=== PATIENT | female | born 2000 | race Caucasian/White ===

== ENCOUNTER 2024-08-13 13:12 | Outpatient (AMB) | payer MEDICAID, SELFPAY ==
--- NOTE | 2024-08-13 13:38 | ACNOTE_ITS ---
Vital Signs 08/13/24 13:39 Height 1.62 m Height Method Stated Weight 107.501 kg Weight Measurement Method Standing Scale BMI 40.9 BP 127/75 Blood Pressure Source Automatic Cuff Blood Pressure Location Left Upper Arm Position Sitting Respiration 17 Pulse 92 Pulse Source Monitor Temp 98.0 F Temp Source Temporal Artery Scan Pulse Oximetry (%) 98 Oxygen Delivery Method Room Air Allergies/Meds Allergies & Medications Allergies No Known Allergies Allergy (Verified 08/13/24 13:40) Medication Reconciliation hydrocodone 5 mg-acetaminophen 325 mg tablet ([place]) 1 tab PO BID PRN pain #12 tabs 01/08/20 [Rx Confirmed 08/13/24] acetaminophen 325 mg capsule (Tylenol) 650 mg (2 x 325 mg) PO QID PRN fever or pain #30 caps 10/02/20 [Rx Confirmed 08/13/24] fluoxetine 10 mg capsule (Prozac) 10 mg PO QDAY #30 caps 08/13/24 [Rx] MA Intake Visit Data Collection New Patient or Established: Established Patient (seen at 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 PCP or OBGYN visit in last 3 months: No Hx Now: No Do You Feel Safe at Home: Yes Authorities Contacted: N/A Smoking Status Smoking Status: Never smoker Immunization / Flu Flu Vaccine in the Last 12 Months: No Flu Vaccine Exclusion Criteria: No Exclusion Criteria Past Medical History Past Medical History NEUROLOGIC: Negative Neurological Disorders or Seizures CARDIAC: Negative Cardiac Disorders or Congestive Heart Failure RESPIRATORY: Negative Chronic Obstructive Pulmonary Disease (COPD) or Asthma GASTROINTESTINAL: Positive Gastrointestinal Disorders and Obesity GENITOURINARY: Negative Genitourinary Disorders or Renal Disease ENDOCRINE: Negative Endocrine Disorders, Diabetes Mellitus Type 1 or Diabetes Mellitus Type 2 HEMATOLOGIC: Negative Blood Disorders or Sickle Cell Disease OTHER HISTORY: Positive Hospitalization and Falls; Negative Autoimmune Disease, Blood Transfusions, Blood Transfusion Reaction or Anesthesia Reactions Family History FAMILY HISTORY: Positive Family Cardiac Disorders and Family Surgery Surgical History SURGICAL: Positive Abdominal Surgery Social History SMOKING STATUS: Smoking status: Never smoker ALCOHOL: Alcohol Intake: Never HOUSING: Housing: House Patient Portal Questionaires Social History Living Situation History Housing: House Tobacco History Smoking Status: Never smoker Alcohol History Alcohol Intake: Never Domestic Abuse History Do You Feel Safe at Home: Yes Review of Systems Report any current symptoms Only answer those that you have currently: Past Medical History Past Medical History Have you ever been diagnosed with any of the following: Neurological Problems Seizures: No Cardiology Problems Congestive Heart Failure: No Respiratory Problems Chronic Obstructive Pulmonary Disease (COPD): No Asthma: No Stomache/Intestinal Problems Obesity: Yes Genital/Urinary Problems Renal Disease: No Endocrine Problems Diabetes Mellitus Type 1: No Diabetes Mellitus Type 2: No Blood Problems Sickle Cell Disease: No Other Problems Hospitalization: Yes Autoimmune Disease: No Falls: Yes Blood Transfusions: No Blood Transfusion Reaction: No Anesthesia Reactions: No History of Present Illness HPI Narrative 24 yo F with anxiety and depression, and obesity. Patient presented today due to 2 episodes LOC after panic attacks. Also wants weight management. Denies palpitations, but feels warm sensations when feeling presyncopal. Review of Systems Review of Systems Systems Reviewed: All systems reviewed, normal except as documented Objective/Exam Narrative Physical exam: Constitutional: AOx3, able to speak full sentences HEENT: NC/AT, PERRLA, oral mucosa moist, neck supple CVS: RRR, S1-S2 present, no murmurs RESP: CTAB GI: non distended, non tender to palpation, NBS MSK: full ROM, no peripheral edema, peripheral pulses present Skin: warm and dry, no rashes Neuro: tire classifier II-XII grossly intact. Sensation grossly intact. Assessment & Plan Diagnosis / Problem List (1) Syncope: Status: Acute Qualifiers: Syncope type: unspecified Qualified Code(s): R55 - Syncope and collapse Assessment & Plan: Had two episodes that the patient had a syncopal episode, feels a warm sensation, denies palpitations happens after a panic attack or anxiety Plan: -labs: cbc, cmp, thyroid, urinalysis, mag/phos -Cardiology referral (2) Depression: Status: Acute Qualifiers: Depression Type: major depressive disorder Major depression recurrence: unspecified whether recurrent Active/Remission status: currently active Major depression episode severity: unspecified Qualified Code(s): F32.9 - Major depressive disorder, single episode, unspecified Assessment & Plan: Has sufferred from anxiety and depression from several years. might also have a component of PTSD Plan: -we will screen for severity next visit -we will screen for PTSD on the next visit Orders: Referrals Cardiovascular R55 - Syncope and collapse Office Procedures [facility] Level of Care Nursing/Assessment Patient Status: Established Patient Nursing Assessment/Reassessment: Medication Reconciliation, Update PMH in EMR and Vital Signs Coordination of Care: Complex Care and Chronic Disease 1-5, Consent,records obtained, informed consent, Education Simp Pt/Fam and Staff clarify orders Established Patient Charge Established Patient Point Assignment: 85 Established Patient Point Charge: EP Level 3 (80-115)
[2024-08-13 13:39] VITALS: BP 127/75; PULSE 92; RESP 17; TEMP 36.7; O2SAT 98; BMI 40.9
== END 2024-08-13 16:22 | disposition home or self-care (01) ==
LOC: HODAHC 13:12
PROVIDERS: PCP Student in an Organized Health Care Education/Training Program; Referring Provider Student in an Organized Health Care Education/Training Program; Supervising Provider Internal Medicine; Visit Provider Student in an Organized Health Care Education/Training Program
DX: R55 Syncope and collapse (principal); F41.0 Panic disorder [episodic paroxysmal anxiety]; F32.9 Major depressive disorder, single episode, unspecified; E66.9 Obesity, unspecified
CPT/HCPCS: 99213; G0463

== ENCOUNTER 2024-08-26 15:01 | Outpatient (AMB) | payer MEDICAID, SELFPAY ==
--- NOTE | 2024-08-26 15:17 | PD.RESCLINIC ---
Vital Signs 08/26/24 15:36 Height 1.62 m Height Method Stated Weight 109.486 kg Weight Measurement Method Standing Scale BMI 41.7 BP 141/85 H Blood Pressure Source Automatic Cuff Blood Pressure Location Left Upper Arm Position Sitting Respiration 16 Pulse 99 Pulse Source Monitor Temp 98.6 F Temp Source Temporal Artery Scan Pulse Oximetry (%) 99 Oxygen Delivery Method Room Air Allergies/Meds Allergies & Medications Allergies No Known Allergies Allergy (Verified 08/27/24 09:14) Medication Reconciliation hydrocodone 5 mg-acetaminophen 325 mg tablet ([place]) 1 tab PO BID PRN pain #12 tabs 01/08/20 [Rx Confirmed 08/27/24] acetaminophen 325 mg capsule (Tylenol) 650 mg (2 x 325 mg) PO QID PRN fever or pain #30 caps 10/02/20 [Rx Confirmed 08/27/24] fluoxetine 10 mg capsule (Prozac) 10 mg PO QDAY #30 caps 08/13/24 [Rx Confirmed 08/27/24] azithromycin 250 mg tablet (Zithromax Z-Obi) See Rx Instructions PO .COMPLEX #6 tabs 08/26/24 [Rx Confirmed 08/27/24] MA Intake Visit Data Collection New Patient or Established: Established Patient (seen at [facility] within 3 years) Seen by Clinical Staff ONLY (RN/MA): No Pain Present Currently: No Pain Scale Used: Mckay-Galeas/Numerical 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 PCP or OBGYN visit in last 3 months: Yes Hx Now: No Do You Feel Safe at Home: Yes Authorities Contacted: N/A Smoking Status Smoking Status: Never smoker Immunization / Flu Flu Vaccine in the Last 12 Months: No Flu Vaccine Exclusion Criteria: No Exclusion Criteria Past Medical History Past Medical History NEUROLOGIC: Negative Neurological Disorders or Seizures CARDIAC: Negative Cardiac Disorders or Congestive Heart Failure RESPIRATORY: Negative Chronic Obstructive Pulmonary Disease (COPD) or Asthma GASTROINTESTINAL: Positive Gastrointestinal Disorders and Obesity GENITOURINARY: Negative Genitourinary Disorders or Renal Disease ENDOCRINE: Negative Endocrine Disorders, Diabetes Mellitus Type 1 or Diabetes Mellitus Type 2 HEMATOLOGIC: Negative Blood Disorders or Sickle Cell Disease OTHER HISTORY: Positive Hospitalization and Falls; Negative Autoimmune Disease, Blood Transfusions, Blood Transfusion Reaction or Anesthesia Reactions Family History FAMILY HISTORY: Positive Family Cardiac Disorders and Family Surgery Surgical History SURGICAL: Positive Abdominal Surgery Social History SMOKING STATUS: Smoking status: Never smoker ALCOHOL: Alcohol Intake: Never HOUSING: Housing: House Patient Portal Questionaires Social History Living Situation History Housing: House Tobacco History Smoking Status: Never smoker Alcohol History Alcohol Intake: Never Domestic Abuse History Do You Feel Safe at Home: Yes Review of Systems Report any current symptoms Only answer those that you have currently: Past Medical History Past Medical History Have you ever been diagnosed with any of the following: Neurological Problems Seizures: No Cardiology Problems Congestive Heart Failure: No Respiratory Problems Chronic Obstructive Pulmonary Disease (COPD): No Asthma: No Stomache/Intestinal Problems Obesity: Yes Genital/Urinary Problems Renal Disease: No Endocrine Problems Diabetes Mellitus Type 1: No Diabetes Mellitus Type 2: No Blood Problems Sickle Cell Disease: No Other Problems Hospitalization: Yes Autoimmune Disease: No Falls: Yes Blood Transfusions: No Blood Transfusion Reaction: No Anesthesia Reactions: No History of Present Illness HPI Narrative Patient is a walk-in for clinic today. Patient endorses waking up with left ear pain and throat pain this morning. Patient states she had a shower last night, went to sleep and woke up with pain. Pain is not responding to advil. She states this feels similar to ear infections that she would get when she was younger. Denies any hearing loss, discharge, fevers, discharge, or sick contacts. She denies using any Qtips or other form of trauma to ear. Review of Systems Review of Systems Systems Reviewed: All systems reviewed, normal except as documented Objective/Exam Narrative Physical exam: Gen: AAOx3, pleasant to speak with, answers Qs appropriately HEENT: NCAT, TTP at left mastoid; B/L TM visualized, mild effusion at left TM; erythematous pharynx without any exudates, no LAD CVS: normal S1, S2. RRR. No MRG Resp: CTA B/L. No rhonchi, rales, crackles or wheezing Abd: soft, non-tender, non-distended. BS+ in all 4 quadrants MSK: Good ROM in BUE & BLE. No edema or rash. Assessment & Plan Diagnosis / Problem List (1) Ear pain, left: Status: Acute Assessment & Plan: Patient c/o pain in left ear, with TTP at mastoid; ear exam with some erythema, mild effusion at L TM Plan: Will order z obi (500mg day 1, 250mg day 2-5) Use OTC advil for pain Consider obtaining head/neck CT to evaluate/rule out mastoiditis if patients symptoms don't improve Office Procedures [facility] Level of Care Nursing/Assessment Patient Status: Established Patient Nursing Assessment/Reassessment: Medication Reconciliation and Update PMH in EMR Coordination of Care: Complex Care and Chronic Disease 1-5, Consent,records obtained, informed consent, Education Simp Pt/Fam and Staff clarify orders Established Patient Charge Established Patient Point Assignment: 70 Established Patient Point Charge: EP Level 2 (40-75)
[2024-08-26 15:36] VITALS: BP 141/85; PULSE 99; RESP 16; TEMP 37; O2SAT 99; BMI 41.7
== END 2024-08-26 15:32 | disposition home or self-care (01) ==
LOC: HODAHC 15:01
PROVIDERS: Supervising Provider Internal Medicine; Visit Provider Student in an Organized Health Care Education/Training Program
DX: H92.02 Otalgia, left ear (principal)
CPT/HCPCS: 99212; G0463

== ENCOUNTER 2024-09-03 08:54 | Emergency (ER) | payer MEDICAID, SELFPAY ==
--- NOTE | 2024-09-03 08:58 | EKG_ITS ---
[facility] Test Date: 2024-09-03 Pat Name: NILESH DIAZ Department: Room: - Gender: Female Cath Lab Tech: : [id number] Requested By: Clifford Dumas (MAICOL) Order Number: [id number] Reading MD: Clifford Dumas (NANOTECHNOLOGIST) Measurements Intervals [place] Rate: 89 P: 60 WA: 125 QRS: 46 QRSD: 85 T: 17 QT: 342 QTc: 418 Interpretive Statements SINUS RHYTHM Compared to ECG 08/18/2022 01:23:30 Atrial fibrillation no longer present Ventricular premature complex(es) no longer present Aberrant conduction of supraventricular beat(s) no longer present /store/S0/[id number]/ecg/[id number].pdf
[2024-09-03 09:07] VITALS: BP 141/94; PULSE 91; RESP 20; TEMP 36.8; O2SAT 99; BMI 41.7
--- NOTE | 2024-09-03 09:16 | XR_ITS ---
Examination: PA lateral chest 2 views TECHNIQUE: Upright PA lateral chest 2 views Exam date and time: September 03, 2024 0927 hours INDICATIONS: Chest pain shortness of breath beginning one month ago. FINDINGS: Normal heart size. Lungs are clear. Osseous structures are intact. IMPRESSION: No active disease
--- NOTE | 2024-09-03 09:17 | PD.EDRME ---
Rapid Medical Screening Exam RME Arrival date/time: 09/03/24 08:54 24-year-old female presents to the emergency department today complains of episode of tachycardia and labile blood pressure today Chief Complaint: Chest Pain Vital signs: Vital Signs Temperature 98.2 F 09/03/24 09:07 Pulse Rate 91 09/03/24 09:07 Respiratory Rate 20 09/03/24 09:07 Blood Pressure 141/94 H 09/03/24 09:07 Pulse Oximetry (%) 99 09/03/24 09:07 Oxygen Delivery Method Room Air 09/03/24 09:07
[2024-09-03 09:46] LABS: Basophils % (Auto) 1 % (0-2.5); Eosinophils # (Auto) 0.1 Thou/mm3 (0.0-0.5); Eosinophils % (Auto) 1 % (0-10); Hematocrit 40.7 % (36.0-46.0); Hemoglobin 14.2 g/dL (12.0-16.0); Immature Granulocytes % (Auto) 0 % (0-0); Immature Granulocytes Auto 0.02 Thou/mm3 (0.00-0.00); Lymphocytes # (Auto) 1.5 Thou/mm3 (1.0-4.8); Lymphocytes % (Auto) 18 % (10-50); Mean Corpuscular HGB Conc 34.9 g/dl (31.0-37.0); Mean Corpuscular Hemoglobin 29.8 pg (25.0-35.0); Mean Corpuscular Volume 86 fL (80-100); Monocytes # (Auto) 0.4 Thou/mm3 (0.0-0.8); Monocytes % (Auto) 5 % (0-12); Neutrophils # (Auto) 6.2 Thou/mm3 (1.8-7.7); Neutrophils % (Auto) 76 % (37-80); Nucleated Red Blood Cell % 0 /100 WBC (0); Platelet Count 326 Thou/mm3 (140-440); RDW Standard Deviation 38.8 fL (36.4-46.3); Red Blood Count 4.76 Miln/mm3 (4.00-5.20); White Blood Count 8.3 Thou/mm3 (3.6-11.0)
[2024-09-03 10:29] LABS: HCG,Qualitative Serum Negative
[2024-09-03 10:48] LABS: Alanine Aminotransferase 37 U/L (10-49); Albumin, Serum 4.6 gm/dL (3.5-5.0); Albumin/Globulin Ratio 1.8 (1.2-2.2); Alkaline Phosphatase 79 U/L (46-116); Anion Gap 8 (7-16); Aspartate Amino Transferase 23 U/L (0-34); BUN/Creatinine Ratio 11 Ratio (12-20); Bilirubin,Total 0.6 mg/dL (0.3-1.2); Blood Urea Nitrogen 8 mg/dL (9-23); Calcium 9.4 mg/dL (8.3-10.6); Calcium (Corrected) 9.4 mg/dL (8.5-10.1); Carbon Dioxide 25.5 mMol/L (20.0-31.0); Chloride 106 mMol/L (98-107); Creatinine (Component) 0.7 mg/dL (0.6-1.3); Estimated Creatinine Clearance 151.8 mL/min (>60); Free T4 (Free Thyroxine) 1.15 ng/dL (0.89-1.76); Globulin 2.6 gm/dL (2.3-3.5); Glucose 94 mg/dL (74-106); Osmolality,Calculated 275 (275-295); Potassium 3.5 mMol/L (3.4-5.1); Sodium 139 mMol/L (136-145); Thyroid Stimulating Hormone 0.75 uIU/mL (0.55-4.78); Total Protein 7.2 gm/dL (5.7-8.2); Troponin I < 0.002 ng/mL (0.0-0.045); eGFR > 60 See Note
--- NOTE | 2024-09-03 12:17 | EDNOTE_ITS ---
<Statement entered by Namrata Navarrete MD - 09/04/24 16:29> As co-signing physician, I was present and available for consult prn. I concur with the plan and care as documented by the midlevel provider. ED General RME/HPI General Chief complaint: Chest Pain Stated complaint: HEART RACING, NEAR SYNCOPE, JOHNSON, CHEST PAIN Time Seen by Provider: 09/03/24 12:04 Arrival date/time: 09/03/24 08:54 RME / HPI RME / HPI narrative: 24-year-old female patient with no past medical history, came in for evaluation regarding syncope. Patient been having symptoms of sudden onset of dizziness, near syncope, heart racing, palpitation, chest discomfort, headache, for several months. It is worse during activity. Currently patient is not having any symptoms. Was seen by PCP regarding this complaints and awaiting to be seen by a outreach rep in 2 months. Patient denies any other complaints. Related Data Previous Rx's ?Medication ?Instructions ?Recorded hydrocodone 5 mg-acetaminophen 325 1 tab PO BID PRN pa in #12 tabs 01/07/ mg tablet ([place]) acetaminophen 325 mg capsule 650 mg (2 x 325 mg) PO QI D PRN 10/02/20 (Tylenol) fever or pain #30 caps fluoxetine 10 mg capsule (Prozac) 10 mg PO QDAY #30 ca ps 08/13/24 azithromycin 250 mg tablet See Rx Instructions PO .COM PLEX #6 08/26/24 (Zithromax Z-Obi) tabs Allergies Allergy/AdvReac Type Severity Reaction Status Date / Time No Known Allergies Allergy Verified 08/27/24 09:14 Review of Systems Review of Systems Narrative Review of Systems: Review of system reviewed and within normal limits except mentioned in HPI ED Exam Narrative Physical exam: VITAL SIGNS: Reviewed. GENERAL APPEARANCE: Alert and interactive, follows commands, no acute distress, HEAD AND FACE: Non-traumatic. ENT: PERRL, pink conjunctivitis, eyelid no trauma, Mucous membrane moist. NECK: Supple, nontender, no nuchal rigidity. CHEST: No tenderness, no crepitus, no paradoxical movement, no retractions. LUNGS: Clear, well ventilated, symmetric, no rales, no wheezing, no ronchi, no stridor, good breath sounds bilaterally. HEART: Regular rate, regular rhythm, no murmur, no gallops. ABDOMEN: Soft, positive bowel sounds, nondistended, no guarding, nontender, no rebound, no masses, RECTAL: Deferred. GENITAL: Deferred. NEUROLOGICAL: Gross motor function intact sensory function intact, Appropriate for age. MUSCULOSKELETAL: low back nontender, full range of motion. EXTREMITIES: Nontender, full range of motion. SKIN: Color pink, dry, no rash, no lacerations, no abrasions, no contusions. LYMPHATICS: Deferred. Course Quality Measures none Orders Category Date Time Status EKG (ED ONLY) *Do not use* NOW Care 09/03/24 08:58 Completed EKG (ED Only) Stat Exams 09/03/24 08:58 Draft XR chest 2V Stat Exams 09/03/24 09:16 Completed CBC Stat Lab 09/03/24 09:35 Completed Comprehensive Metabolic Panel Stat Lab 09/03/24 09:35 Completed Free T4 (Free Thyroxine) Stat Lab 09/03/24 09:35 Completed HCG,Qualitative Serum Stat Lab 09/03/24 09:35 Completed TSH [Thyroid Stimulating Hormone] Stat Lab 09/03/24 09:35 Completed Troponin I Stat Lab 09/03/24 09:35 Completed Vital Signs Vital signs: Vital Signs Temperature 98.2 F 09/03/24 09:07 Pulse Rate 91 09/03/24 09:07 Respiratory Rate 20 09/03/24 09:07 Blood Pressure 141/94 H 09/03/24 09:07 Pulse Oximetry (%) 99 09/03/24 09:07 Oxygen Delivery Method Room Air 09/03/24 09:07 [facility] [place] Patient data External records reviewed:: None Clinical information provided by:: none Social determinants that could affect healthcare access:: none Patient has the following chronic illnesses:: None How is presenting disease/condition affected by chronic disease/condition?: no chronic disease Evaluation data The following diagnostics were reviewed and interpreted by me:: lab results, radiology exam(s) and EKG tracing(s) Lab and/or radiology exams considered but not ordered:: None Interpretation Summary: See results in MDM Medications Medications considered but not ordered:: None Medication administrations:: None Consultations Consultation(s) initiated? (list below): No Diagnosis Differential Diagnosis ED Complaint MDM: Dizziness, palpitation, anxiety, near- syncope Most likely diagnosis given after review of the tests above:: Near-syncope Admission Indicated Admission indicated?: not indicated Explain why admission is indicated or not indicated:: Stable Admission Request Was there a request for admission?: No Disposition Plan Disposition Plan: Discharge Discharge Attestation Discharge Attestation: The patient and all family members were given an opportunity to ask questions and understood the discharge instructions. Discharge instructions specifically effects, indications for sooner follow up or return to the emergency department, and the expected course of current diagnosis. Patient condition: Stable Medical Decision Making MDM Narrative MDM Narrative: 24-year-old female patient with no past medical history, came in for evaluation regarding syncope. Patient been having symptoms of sudden onset of dizziness, near syncope, heart racing, palpitation, chest discomfort, headache, for several months. It is worse during activity. Currently patient is not having any symptoms. Was seen by PCP regarding this complaints and awaiting to be seen by a outreach rep in 2 months. Patient denies any other complaints. Patient's cardiac workup all came back normal today including thyroid panel. Chest x-ray came back unremarkable. EKG showed normal sinus rhythm, ventricular rate of 89 bpm, no ST segment elevation or depression noted. Patient was strongly advised to call PCP and asked if she can see her outreach rep earlier than scheduled. Patient appears nontoxic and hemodynamically stable. Patient discharged home and instructed to follow-up with primary care provider in 24 to 48 hours. Instructed to return to the emergency department immediately if worsening of symptoms Differential Diagnosis Differential Diagnosis: Dizziness, palpitation, anxiety, near-syncope Lab Data 09/03/24 09:35 09/03/24 09:35 Labs: Lab Results 09/03/24 Range/Units 09:35 WBC 8.3 (3.6-11.0) Thou/mm3 RBC 4.76 (4.00-5.20) Miln/mm3 Hgb 14.2 (12.0-16.0) g/dL Hct 40.7 (36.0-46.0) % MCV 86 (80-100) fL MCH 29.8 (25.0-35.0) pg MCHC 34.9 (31.0-37.0) g/dl RDW Std Deviation 38.8 (36.4-46.3) fL Plt Count 326 (140-440) Thou/mm3 Neut % (Auto) 76 (37-80) % Lymph % (Auto) 18 (10-50) % [place] % (Auto) 5 (0-12) % Eos % (Auto) 1 (0-10) % Baso % (Auto) 1 (0-2.5) % Neut # (Auto) 6.2 (1.8-7.7) Thou/mm3 Lymph # (Auto) 1.5 (1.0-4.8) Thou/mm3 [place] # (Auto) 0.4 (0.0-0.8) Thou/mm3 Eos # (Auto) 0.1 (0.0-0.5) Thou/mm3 Baso # (Auto) 0.0 (0.0-0.2) Thou/mm3 Immature Gran # (Auto) 0.02 H (0.00-0.00) Thou/mm3 Absolute Nucleated RBC 0.00 (0.00-0.00) Thou/mm3 Immature Gran % 0 (0-0) % Nucleated RBC % 0 (0) /100 WBC Sodium 139 (136-145) mMol/L Potassium 3.5 (3.4-5.1) mMol/L Chloride 106 (98-107) mMol/L Carbon Dioxide 25.5 (20.0-31.0) mMol/L Anion Gap 8 (7-16) BUN 8 L (9-23) mg/dL Creatinine 0.7 (0.6-1.3) mg/dL Estim Creat Clear Calc 151.8 (>60) mL/min eGFR > 60 (60 - ) See Note BUN/Creatinine Ratio 11 L (12-20) Ratio Glucose 94 (74-106) mg/dL Calculated Osmolality 275 (275-295) Calcium 9.4 (8.3-10.6) mg/dL Corrected Calcium 9.4 (8.5-10.1) mg/dL Total Bilirubin 0.6 (0.3-1.2) mg/dL AST 23 (0-34) U/L ALT 37 (10-49) U/L Alkaline Phosphatase 79 (46-116) U/L Troponin I < 0.002 (0.0-0.045) ng/mL Total Protein 7.2 (5.7-8.2) gm/dL Albumin 4.6 (3.5-5.0) gm/dL Globulin 2.6 (2.3-3.5) gm/dL Albumin/Globulin Ratio 1.8 (1.2-2.2) TSH 0.75 (0.55-4.78) uIU/mL Free T4 1.15 (0.89-1.76) ng/dL HCG, Qual Negative Discharge Plan Plan Patient Disposition: HOME (Self Care) Disposition Comment: Stable Prescriptions/Referrals Prescriptions/Med Rec: No Action fluoxetine [Prozac] 10 mg capsule 10 mg PO QDAY Qty: 30 2RF azithromycin [Zithromax Z-Obi] 250 mg tablet See Rx Instructions PO .COMPLEX Qty: 6 0RF Rx Instructions: For 250 mg dose pack: take 500 mg today (day 1), then 250 mg for 4 days (days 2-5) orally; hydrocodone-acetaminophen [[place]] 5-325 mg tablet 1 tab PO BID MDD 4 PRN (Reason: pain) Qty: 12 0RF acetaminophen [Tylenol] 325 mg capsule 650 mg PO QID PRN (Reason: fever or pain) Qty: 30 0RF Referrals: Lance Parker MD [Primary Care Provider] - In 1 week Problem List Clinical Impression: Postural dizziness with near syncope Patient/Caregiver Discharge Instructions Education Materials: ED Near-Fainting- Vagal Reaction Additional Instructions: Thank you for the opportunity for serving you today. You are stable for discharged . You are advised to: Follow-up with your PCP in 1 to 2 days and and asked if you can be seen by a outreach rep sooner Return to ED for worsening of symptoms Increase oral fluids Print Language: Slovak Stand Alone Forms: Kori Award Info., Patient Portal Info Letter MENDOZA/BRIGHT Supervising Physician LOIS Supervising Physician: MD Landon
== END 2024-09-03 12:31 | disposition home or self-care (01) ==
PROVIDERS: Nurse Practitioner Primary Care; Emergency Provider Emergency Medicine; PCP Student in an Organized Health Care Education/Training Program
DX: R42 Dizziness and giddiness (principal); R55 Syncope and collapse; R07.89 Other chest pain
CPT/HCPCS: 36415; 71046; 80053; 84439; 84443; 84484; 84703; 85025; 93005; 99283

== ENCOUNTER 2024-10-06 12:09 | Outpatient (AMB) | payer MEDICAID, SELFPAY ==
[2024-10-06 13:05] VITALS: BP 114/82; PULSE 94; RESP 16; TEMP 37; O2SAT 94; BMI 40.3
--- NOTE | 2024-10-06 13:05 | GYNCLNT_ITS ---
Vital Signs 10/06/24 13:05 Height 1.63 m Height Method Stated Weight 106.594 kg Weight Measurement Method Standing Scale BMI 40.3 BP 114/82 Blood Pressure Source Automatic Cuff Blood Pressure Location Left Upper Arm Position Sitting Respiration 16 Pulse 94 Pulse Source Monitor Temp 98.6 F Temp Source Temporal Artery Scan Pulse Oximetry (%) 94 L Oxygen Delivery Method Room Air Allergies/Home Meds Allergies & Medications Allergies No Known Allergies Allergy (Verified 10/06/24 13:12) Medication Reconciliation azithromycin 250 mg tablet (Zithromax Z-Obi) See Rx Instructions PO .COMPLEX #6 tabs 08/26/24 [Rx Confirmed 10/06/24] fluoxetine 10 mg capsule (Prozac) 10 mg PO QDAY #30 caps 09/10/24 [Rx Confirmed 10/06/24] propranolol 10 mg tablet 10 mg PO TID #90 tabs 09/10/24 [Rx Confirmed 10/06/24] medroxyprogesterone 10 mg tablet 10 mg PO .taper 21 days #27 tabs 10/06/24 [Rx Confirmed 10/06/24] Intake Visit Data Collection New Patient or Established: Established Patient (seen at [facility] within 3 years) Reason for Visit:: heavy menstrual Seen by Clinical Staff ONLY (RN/MA): No Director General Required: No Do You Feel Safe at Home: Yes Authorities Contacted: N/A PCP or OBGYN visit in last 3 months: Yes Are you currently on any form of Control: Yes Pain Scale Used: Mckay-Galeas/Numerical Pain scale:: 6 Smoking Status Smoking Status: Never smoker 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 1. Little interest or pleasure in doing things: not at all 2. Feeling down, depressed, or hopeless: not at all Total score: 0 PHQ-9 3. Trouble falling or staying asleep, or sleeping too much: Not at all 4. Feeling tired or having little energy: Not at all 5. Poor appetite or overeating: Not at all 6. Feeling bad about yourself - or that you are a failure or have let yourself or your family down: Not at all 7. Trouble concentrating on things, such as reading the newspaper or watching television: Not at all 8. Moving or speaking so slowly that other people could have noticed? - Or the opposite - being so fidgety or restless that you have been moving around a lot more than usual: not at all 9. Thoughts that you would be better off or of hurting yourself in some way: Not at all Total score: 0 If you checked off any problems, how difficult have these problems made it for you to do your work, take care of things at home, or get along with other pe ople?: not difficult at all Source: Developed by Drs. Rome Rodríguez, Jammie Jay, Richie Rae and colleagues, with an educational nae from [employer]. Social History Living Situation History Housing: House Tobacco History Smoking Status: Never smoker Alcohol History Alcohol Intake: Never Domestic Abuse History Do You Feel Safe at Home: Yes Past Medical History Past Medical History Have you ever been diagnosed with any of the following: Neurological Problems Seizures: No Cardiology Problems Congestive Heart Failure: No Respiratory Problems Chronic Obstructive Pulmonary Disease (COPD): No Asthma: No Stomache/Intestinal Problems Obesity: Yes Genital/Urinary Problems Renal Disease: No Endocrine Problems Diabetes Mellitus Type 1: No Diabetes Mellitus Type 2: No Blood Problems Sickle Cell Disease: No Other Problems Hospitalization: Yes Falls: Yes Blood Transfusions: No Blood Transfusion Reaction: No Anesthesia Reactions: No History of Present Illness HPI Narrative The patient, Jina Mckeon, reports heavy menstrual bleeding that started on after stopping her control. She notes that the bleeding is more severe than usual and is accompanied by significant pain. The patient describes the pain as radiating from her abdomen to her back, along with associated cramping. She mentions that while she typically experiences heavy bleeding even when on control, this episode is particularly painful, which is unusual for her. The patient also reports an irregular menstrual cycle last month, stating that she had her period on the but only experienced spotting. She had previously undergone a regular ultrasound at the ER for evaluation of her symptoms. Review of Systems Review of Systems Systems Reviewed: All systems reviewed, normal except as documented Exam General Limitations: no limitations General Appearance: alert, in no apparent distress, comfortable, cooperative, healthy appearing, well developed and well groomed Head Head exam: atraumatic, normocephalic and normal inspection Neck Neck exam: Present normal inspection, full ROM and trachea midline Chest Chest inspection: Present normal inspection and symmetric chest wall rise Abdominal Abdominal exam: Present soft and normal bowel sounds Extremities Extremities exam: Present normal inspection and full ROM Back Back exam: Present normal inspection and full ROM Psych Psychiatric exam: Present normal affect and normal mood Skin Skin exam: Present warm, dry, intact and normal color Assessment & Plan Diagnosis / Problem List (1) Abnormal uterine and vaginal bleeding, unspecified: Status: Acute (2) Abdominal pain: Status: Acute Plan Patient reports heavy menstrual bleeding and severe pain since discontinuing control. The heavy bleeding has been consistent while on control, but the current episode is accompanied by back pain and cramping. This presentation is likely due to withdrawal from hormonal contraception, resulting in a more intense menstrual period. The previous month's spotting on the is assessed as an anovulatory cycle. The clinician attributes the current symptoms to the cessation of control, explaining the hormonal feedback loop and breakthrough bleeding phenomenon. - Prescribe Provera (progesterone) with a tapering regimen: * 3 times daily for 2 days * 2 times daily for 2 days * Once daily for remaining days to complete a 21-day course - Patient to report back by Friday on bleeding status - Consider additional medication if bleeding does not slow or stop - Plan for transvaginal ultrasound after bleeding stops, ideally in the early phase of the next cycle - Follow up to review ultrasound results and determine further management Medical Decision Making Jina Mckeon is a female patient presenting with heavy menstrual bleeding and associated pain after stopping control. The patient's symptoms of heavy bleeding, back pain, and cramps are consistent with post- control withdrawal bleeding. Given the recent cessation of control and the patient's history of heavy periods while on contraceptives, the current symptoms are likely due to hormonal fluctuations. The decision to prescribe Provera (progesterone) is based on its ability to control uterine bleeding by stabilizing the endometrial lining. The tapering regimen of Provera (3 times daily for 2 days, then 2 times daily for 2 days, followed by once daily) over a 21-day period is designed to gradually regulate the menstrual cycle. An ultrasound was considered but deferred due to active bleeding, with plans to perform it after the bleeding stops to assess for any underlying structural abnormalities. Preventive Medicine: Patient Counseling: Sexual Health, Contraception, and Family Planning Your sexual and reproductive health is important, and there are several steps you can take to protect yourself and make informed decisions. Safe Sex and STD Prevention: ? Condom Use: Consistent use of condoms during vaginal, anal, and oral sex reduces the risk of sexually transmitted diseases (STDs), including HIV. ? Regular Testing: Routine STD testing is important, especially if you or your partner have multiple partners. Early detection helps prevent complications. ? Open Communication: Discuss your sexual health and testing history with your partner(s) to make safer choices together. Contraceptive Options: ? Barrier Methods: Condoms (male and female) provide protection against both and STDs. ? Hormonal Methods: control pills, patches, vaginal rings, injections, and implants prevent when used consistently and correctly. ? Long-Acting Reversible Contraception (LARC): IUDs (hormonal and non- hormonal) and implants provide long-term, highly effective protection. ? Permanent Contraception: Options like tubal ligation or vasectomy are available for those who do not wish to have more children. Emergency Contraception (EC): ? Emergency contraception (e.g., Plan B or Ling) can be used after unprotected sex or contraceptive failure and is most effective when taken within 72 hours (up to 5 days for some options). ? EC does not protect against STDs, so follow up with testing if exposure is a concern. Family Planning and Pre- Health: ? If you are planning to become , begin taking folic acid 1 mg daily to reduce the risk of neural tube defects. ? Avoid teratogenic drugs (medications that can harm a developing baby) and discuss any prescription medications with your healthcare provider before . ? It is recommended to space pregnancies at least 18 months apart to support your health and reduce -related risks. Additional Plan Follow Up: 2 Weeks Office Procedures OB Clinic LOC & Office Proc's Nursing/Assessment Patient Status: Established Patient OB Clinic Nursing Assessment: Medication Reconciliation, Update PMH in EMR and Vital Signs OB Clinic Coordination of Care: Complex Care and Chronic Disease 1-5, Consent,records obtained, informed consent, Education Simp Pt/Fam, 1 Ins Authorization, Lab and Imaging orders and Staff clarify orders Established Patient Charge Established Patient Point Assignment: 115 Established Patient Point Charge: Level 3 (80115)
== END 2024-10-06 12:10 | disposition home or self-care (01) ==
LOC: HODSOBC 12:09
PROVIDERS: PCP Obstetrics & Gynecology; Referring Provider Obstetrics & Gynecology; Supervising Provider Obstetrics & Gynecology; Visit Provider Obstetrics & Gynecology
DX: N93.9 Abnormal uterine and vaginal bleeding, unspecified (principal); R10.9 Unspecified abdominal pain
CPT/HCPCS: 99213; G0463

== ENCOUNTER → 2024-10-14 | Outpatient (CLI) | payer MEDICAID, SELFPAY ==
--- NOTE | 2024-10-14 10:07 | XR_ITS ---
Examination: Transvaginal ultrasound of the pelvis, complete Technique: Transvaginal sonographic images pelvis performed using pan scale imaging Exam date and time: October 14, 2024 1018 hours INDICATIONS: Irregular heavy menses beginning one year ago FINDINGS: Uterus 6.1 cm endometrial stripe 0.2 cm No uterine mass or intrauterine gestation Right ovary 2.4 cm arterial flow small follicles Left ovary 4.1 cm arterial flow 25 x 25 mm simple cyst IMPRESSION: 25 x 22 x 25 mm simple left ovarian cyst.
== END | disposition home or self-care (01) ==
PROVIDERS: PCP Physician Assistant Medical; Referring Provider Obstetrics & Gynecology; Visit Provider Obstetrics & Gynecology
DX: N83.292 Other ovarian cyst, left side (principal)
CPT/HCPCS: 76830

== ENCOUNTER 2024-10-21 10:04 | Outpatient (AMB) | payer MEDICAID, SELFPAY ==
--- NOTE | 2024-10-21 10:56 | ACNOTE_ITS ---
Vital Signs 10/21/24 10:57 Height 1.63 m Height Method Stated Weight 106.764 kg Weight Measurement Method Standing Scale BMI 40.4 BP 131/87 H Blood Pressure Source Automatic Cuff Blood Pressure Location Right Upper Arm Position Sitting Respiration 16 Pulse 87 Pulse Source Monitor Temp 98.5 F Temp Source Temporal Artery Scan Pulse Oximetry (%) 98 Oxygen Delivery Method Room Air Allergies/Meds Allergies & Medications Allergies No Known Allergies Allergy (Verified 10/21/24 10:58) Medication Reconciliation azithromycin 250 mg tablet (Zithromax Z-Obi) See Rx Instructions PO .COMPLEX #6 tabs 08/26/24 [Rx Confirmed 10/06/24] fluoxetine 10 mg capsule (Prozac) 10 mg PO QDAY #30 caps 09/10/24 [Rx Confirmed 10/06/24] propranolol 10 mg tablet 10 mg PO TID #90 tabs 09/10/24 [Rx Confirmed 10/06/24] medroxyprogesterone 10 mg tablet 10 mg PO .taper 21 days #27 tabs 10/06/24 [Rx Confirmed 10/06/24] amoxicillin 500 mg tablet 500 mg PO Q12H #20 tabs 10/21/24 [Rx Confirmed 10/21/24] Confirmation of home meds: Pt. unable to confirm MA Intake Visit Data Collection New Patient or Established: Established Patient (seen at [facility] within 3 years) Seen by Clinical Staff ONLY (RN/MELISSA): No Pain Present Currently: No Pain scale:: 0 Pain Scale Used: Mckay-Galeas/Numerical Industrial Cleaner Required: No PCP or OBGYN visit in last 3 months: No Hx Now: No Do You Feel Safe at Home: Yes Authorities Contacted: N/A Smoking Status Smoking Status: Never smoker Immunization / Flu Flu Vaccine in the Last 12 Months: No Flu Vaccine Exclusion Criteria: No Exclusion Criteria Past Medical History Past Medical History NEUROLOGIC: Negative Neurological Disorders or Seizures CARDIAC: Negative Cardiac Disorders or Congestive Heart Failure RESPIRATORY: Negative Chronic Obstructive Pulmonary Disease (COPD) or Asthma GASTROINTESTINAL: Positive Gastrointestinal Disorders and Obesity GENITOURINARY: Negative Genitourinary Disorders or Renal Disease ENDOCRINE: Negative Endocrine Disorders, Diabetes Mellitus Type 1 or Diabetes Mellitus Type 2 HEMATOLOGIC: Negative Blood Disorders or Sickle Cell Disease OTHER HISTORY: Positive Hospitalization and Falls; Negative Autoimmune Disease, Blood Transfusions, Blood Transfusion Reaction or Anesthesia Reactions Family History FAMILY HISTORY: Positive Family Cardiac Disorders and Family Surgery Surgical History SURGICAL: Positive Abdominal Surgery Social History SMOKING STATUS: Smoking status: Never smoker ALCOHOL: Alcohol Intake: Never HOUSING: Housing: House Patient Portal Questionaires PHQ-9 PHQ-2 Over the last 2 weeks, how often have you been bothered by any of the following problems? 1. Little interest or pleasure in doing things: not at all PHQ-9 8. Moving or speaking so slowly that other people could have noticed? - Or the opposite - being so fidgety or restless that you have been moving around a lot more than usual: not at all Source: Developed by Drs. Rome Rodríguez, Jammie Jay, Richie Rae and colleagues, with an educational nae from [employer]. Social History Living Situation History Housing: House Tobacco History Smoking Status: Never smoker Alcohol History Alcohol Intake: Never Domestic Abuse History Do You Feel Safe at Home: Yes Review of Systems Report any current symptoms Only answer those that you have currently: Past Medical History Past Medical History Have you ever been diagnosed with any of the following: Neurological Problems Seizures: No Cardiology Problems Congestive Heart Failure: No Respiratory Problems Chronic Obstructive Pulmonary Disease (COPD): No Asthma: No Stomache/Intestinal Problems Obesity: Yes Genital/Urinary Problems Renal Disease: No Endocrine Problems Diabetes Mellitus Type 1: No Diabetes Mellitus Type 2: No Blood Problems Sickle Cell Disease: No Other Problems Hospitalization: Yes Autoimmune Disease: No Falls: Yes Blood Transfusions: No Blood Transfusion Reaction: No Anesthesia Reactions: No History of Present Illness HPI Narrative 10/21/2024: Jina is a 24 y/o female who comes in for an evaluation of a cough, sore throat, and headache, onset Friday. Pt reports that she has been feeling like these for about 5 days now and it has not gotten better. She does say one of her coworkers is sick right now. She also says that she traveled down to [place] on Friday for a concert. She has gotten the flu vaccine this year. She denies having any fever, chills, CP, SOB. She has tried Ibuprofen and tylenol with some relief. She usually does not get sick often. She has no other complaints at this time. Review of Systems Review of Systems Narrative Review of Systems: Constitutional: No fever, chills, fatigue, weakness, weight loss, +JOHNSON HEENT: No eye pain, vision loss, ear pain, hearing loss, +sore throat Cardiovascular: No chest pain, palpitations, edema, pain with walking Respiratory: + cough, shortness of breath, wheezing GI: No NVD, abdominal pain, constipation, blood in stool, loss of appetite, heartburn Extremities: No presence of pitting edema MSK: No back pain, joint pain, joint swelling Neuro: No dizziness, numbness, weakness, headaches, seizures, tremors Psych: No anxiety, depression Objective/Exam Narrative Physical exam: General: AAOx3, NAD, HEENT: Dry mucous membranes, conjunctiva clear, EOMI, PERRLA, TM wnl bilat, no koplik spots visualized, uvula midline, pharnyx clear of erythema or swelling, no tonsillar swelling, + cervical lymphadenopathy Cardiovascular: S1, S2, radial pulses +2 bilat, RRR Pulmonary: CTAB bilat no cough, no wheezing GI: No tenderness to light or deep palpitation, no guarding, rigidity, rebound tenderness or distension Extremities: No presence of trace or pitting edema in lower extremities bilaterally, dorsalis pedis pulses +2 bilaterally Neuro: AAOx3, no focal motor or sensory deficits in the UE or LE bilat Psych: Good judgement, thought and behavior. Cooperative Assessment & Plan Diagnosis / Problem List (1) Acute streptococcal pharyngitis: Status: Acute Assessment & Plan: CENTOR Criteria: 1 point Pt has been sick for past 5 days, and has sick contacts Low suspicion for pharyngitis, however empiric treatment at this time is warranted due to duration of sx and sick contacts Will hold on sending rapid strep swab at this time and continue with empiric tx Plan: Amoxicillin 500 mg BID for ten days Antiemetic as needed Encourage oral intake Supportive care Additional Assessment Internal Medicine Attending Note: Case discussed with and agree with note and management plan of Resident Jensen sandoval as per Resident's Note above. Issues of concern for present visit are as follows: Acute visit, URI symptoms including cough, sore throat, headache. Known sick contact at work that is currently on antibiotics. Also traveled out of town for a concert so was in crowded situation. Exam consistent with pharyngitis, viral versus bacterial, Centor criteria only 1 point. Given exposure we will treat empirically with amoxicillin, and encourage supportive care. Caleb Ornelas MD Physician Billing Established Patient Established Patient: E/M Level 3-CPT 90066 Office Procedures [facility] Level of Care Nursing/Assessment Patient Status: Established Patient Nursing Assessment/Reassessment: Medication Reconciliation, Update PMH in EMR and Vital Signs Coordination of Care: Complex Care and Chronic Disease 1-5, Consent,records obtained, informed consent, Education Simp Pt/Fam and Staff clarify orders Established Patient Charge Established Patient Point Assignment: 85 Established Patient Point Charge: Level 3 (80-115)
[2024-10-21 10:57] VITALS: BP 131/87; PULSE 87; RESP 16; TEMP 36.9; O2SAT 98; BMI 40.4
== END 2024-10-21 10:40 | disposition home or self-care (01) ==
LOC: HODAHC 10:04
PROVIDERS: Supervising Provider Internal Medicine
DX: J02.0 Streptococcal pharyngitis (principal)
CPT/HCPCS: 99213; G0463

== ENCOUNTER 2025-03-03 13:41 | Outpatient (AMB) | payer MEDICAID, SELFPAY ==
[2025-03-03 13:56] VITALS: BP 118/75; PULSE 97; RESP 17; TEMP 36.8; O2SAT 98; BMI 38.0
--- NOTE | 2025-03-03 13:56 | AMB.GYNCLNOT ---
Vital Signs 03/03/25 13:56 Height 1.63 m Height Method Stated Weight 101.151 kg Weight Measurement Method Standing Scale BMI 38.0 BP 118/75 Blood Pressure Source Automatic Cuff Blood Pressure Location Right Upper Arm Position Sitting Respiration 17 Pulse 97 Pulse Source Monitor Temp 98.2 F Temp Source Temporal Artery Scan Pulse Oximetry (%) 98 Oxygen Delivery Method Room Air Allergies/Home Meds Allergies & Medications Allergies penicillin G Allergy (Verified 03/03/25 14:06) Vomiting Intake Visit Data Collection New Patient or Established: Established Patient (seen at [facility] within 3 years) Reason for Visit:: CONFIRM Seen by Clinical Staff ONLY (RN/MA): No Florist Required: No Do You Feel Safe at Home: Yes Authorities Contacted: N/A PCP or OBGYN visit in last 3 months: No Hx Now: Yes Are you currently on any form of Control: No Last menstrual period: 12/28/24 Pain Present Currently: No Pain Scale Used: Mckay-Galeas/Numerical Pain scale:: 0 Smoking Status Smoking Status: Never smoker 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 Sociology Research Assistant History Menstrual regularity: regular Flow: normal Monthly: Yes How many days does period last: 5 Age at menarche: 17 Currently sexually active: Yes 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 1. Little interest or pleasure in doing things: not at all 2. Feeling down, depressed, or hopeless: not at all Total score: 0 PHQ-9 3. Trouble falling or staying asleep, or sleeping too much: Not at all 4. Feeling tired or having little energy: Not at all 5. Poor appetite or overeating: Not at all 6. Feeling bad about yourself - or that you are a failure or have let yourself or your family down: Not at all 7. Trouble concentrating on things, such as reading the newspaper or watching television: Not at all 8. Moving or speaking so slowly that other people could have noticed? - Or the opposite - being so fidgety or restless that you have been moving around a lot more than usual: not at all 9. Thoughts that you would be better off or of hurting yourself in some way: Not at all Total score: 0 If you checked off any problems, how difficult have these problems made it for you to do your work, take care of things at home, or get along with other people?: not difficult at all Source: Developed by Drs. Rome Rodríguez, Jammie Jay, Richie Rae and colleagues, with an educational nae from [employer]. Depression screen completed yes Social History Living Situation History Marital Status: Life Partner Lives With: Family Housing: House Tobacco History Smoking Status: Never smoker Second Hand Smoke Exposure: No Alcohol History Alcohol Intake: Never Domestic Abuse History Do You Feel Safe at Home: Yes History of Present Illness HPI Narrative Jina Braun 2 is a 25-year-old presenting for confirmation and dating. The patient reports her last menstrual period (LMP) was initially thought to be January 28 but was later clarified as December 28. The patient describes having a normal menstrual period on December 28, followed by light spotting for approximately 3 days starting on January 26. 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 The patient mentions having a positive test on February 26. She is currently experiencing nausea, for which vitamins, Zofran, and vitamin B6 have been prescribed. There is some uncertainty regarding the exact gestational age, with initial calculations suggesting 8 weeks based on the December 28 LMP. However, the patient's HCG levels reportedly correlate more closely with a gestational age of 6 to 7 weeks. A stat ultrasound has been ordered to confirm dates and assist in accurately determining the gestational age. Obstetric History: - GPAL: A0 L0 - Current : Last menstrual period December 28, 2024, estimated gestational age 6-7 weeks based on HCG levels - Patient reported spotting for 3 days around January 26-January 28, 2025 Medications: - vitamin - Zofran - Vitamin B6 for nausea Exam General General Appearance: alert, in no apparent distress and healthy appearing Head Head exam: atraumatic Neck Neck exam: Present normal inspection and trachea midline Chest Chest inspection: Present normal inspection and symmetric chest wall rise External exam: Present normal external exam; Absent tenderness Neuro Neurological exam: Present oriented X3 Psych Psychiatric exam: Present normal affect and normal mood Office Procedures OB Clinic LOC & Office Proc's Nursing/Assessment Patient Status: Established Patient OB Clinic Nursing Assessment: Medication Reconciliation, Update PMH in EMR and Vital Signs OB Clinic Coordination of Care: Complex Care and Chronic Disease 1-5, Consent,records obtained, informed consent, Education Simp Pt/Fam, Lab and Imaging orders and Staff clarify orders Established Patient Charge Established Patient Point Assignment: 100 Established Patient Point Charge: EP Level 3 (80-115) Assessment & Plan Diagnosis / Problem List (1) Supervision of high risk , unspecified, first trimester: Status: Acute (2) Uterine size date discrepancy: Status: Acute Plan Assessment: Patient reports uncertain LMP, initially stating December 28, then January 28, but ultimately confirming December 28 with spotting on January 26. HCG levels correlate with 6-7 weeks gestation. The bleeding on January 26 is assessed as possible ovulation or implantation bleeding. Gestational age is estimated at approximately 8 weeks based on December 28 LMP, but requires confirmation via ultrasound. Plan: - Perform stat transvaginal ultrasound to confirm gestational age and viability - Initiate testing once dates are confirmed - Prescribe vitamins - Prescribe Zofran and vitamin B6 for nausea management - Follow up after ultrasound results to finalize dating and initiate further care
== END 2025-03-03 14:03 | disposition home or self-care (01) ==
LOC: HODSOBC 13:41
PROVIDERS: Supervising Provider Obstetrics & Gynecology; Visit Provider Obstetrics & Gynecology
DX: O09.891 Supervision of other high risk pregnancies, first trimester (principal); Z3A.00 Weeks of gestation of pregnancy not specified; O26.841 Uterine size-date discrepancy, first trimester; Z88.0 Allergy status to penicillin
CPT/HCPCS: 99213; G0463

== ENCOUNTER → 2025-03-07 | Outpatient (CLI) | payer MEDICAID, SELFPAY ==
--- NOTE | 2025-03-07 17:08 | XR_ITS ---
Examination: Complete OB ultrasound, less than 14 weeks, transabdominal Date and time of exam: March 07, 2025 1709 hrs. Indications: Size dates discrepancy Technique: Obstetrical ultrasound images less than 14 weeks performed via transabdominal imaging Findings: Uterus 8.1 cm, intrauterine gestation 1.4 cm correspondences 6 weeks 2 days gestational age No cardiac motion Ovaries obscured by bowel gas Impression: Empty intrauterine gestational sac corresponding to 6 weeks 2 days gestational age, recommend transvaginal pelvic sonography follow-up to confirm viability
== END | disposition home or self-care (01) ==
LOC: CDIM 16:47 → SDIM 16:48
PROVIDERS: PCP Nurse Practitioner Family; Referring Provider Obstetrics & Gynecology; Visit Provider Obstetrics & Gynecology
DX: O26.849 Uterine size-date discrepancy, unspecified trimester (principal); Z3A.01 Less than 8 weeks gestation of pregnancy
CPT/HCPCS: 76801

== ENCOUNTER → 2025-03-14 | Outpatient (CLI) | payer MEDICAID, SELFPAY ==
--- NOTE | 2025-03-14 | XR_ITS ---
Examination: OB Transvaginal ultrasound of the pelvis, complete Technique: Transvaginal sonographic images pelvis performed using pan scale imaging Exam date and time: March 14, 2025, 0800 hours INDICATIONS: Pelvic sonogram 03/07/2025 M.D. intrauterine gestational sac corresponding to 6 weeks 2 days gestational age FINDINGS: Uterus 7.3 cm pole 0.7 cm corresponds to 6 weeks 4 days gestational age Cardiac motion 136 BPM Subchorionic hemorrhage 14 x 15 x 11 mm Right ovary 4.2 cm arterial flow small follicles Left ovary 4.3 cm arterial flow 12 mm follicular cysts and small follicles IMPRESSION: Viable intrauterine gestation 6 weeks 4 days Consider short-term follow-up given the adjacent subchorionic hemorrhage.
== END | disposition home or self-care (01) ==
PROVIDERS: PCP Nurse Practitioner Family; Referring Provider Obstetrics & Gynecology; Visit Provider Obstetrics & Gynecology
DX: O26.849 Uterine size-date discrepancy, unspecified trimester (principal); Z3A.01 Less than 8 weeks gestation of pregnancy
CPT/HCPCS: 76817

== ENCOUNTER 2025-03-20 17:32 | Observation (INO) | payer MEDICAID, SELFPAY ==
[2025-03-20 17:33] VITALS: BMI 38.6
[2025-03-20 17:42] VITALS: BP 128/83; PULSE 93; RESP 17; TEMP 37.2; O2SAT 99
--- NOTE | 2025-03-20 17:47 | XR_ITS ---
Examination: Complete OB ultrasound, less than 14 weeks, transabdominal Date and time of exam: March 20, 2025, 1928 hrs. Indications: Hyperemesis of beginning last night. Technique: Obstetrical ultrasound images less than 14 weeks performed via transabdominal imaging Findings: A normal shaped single intrauterine gestation is present in the uterus. CRL 1.4 cm corresponds to 7 weeks 5 day gestational age Cardiac motion 171 BPM Ultrasonographic survey of visible and placental structures unremarkable. Amniotic fluid volume appears appropriate for this estimated gestational age. Right ovary 4.1 cm arterial flow. Left ovary obscured by bowel gas Impression: Viable intrauterine gestation 7 weeks 5 days.
--- NOTE | 2025-03-20 17:47 | PD.EDRME ---
Rapid Medical Screening Exam RME Arrival date/time: 03/20/25 17:32 Chief Complaint: Nausea/Vomiting/Diarrhea Time Seen by Provider: 03/20/25 17:39 Vital signs: Vital Signs Temperature 99.0 F 03/20/25 17:42 Pulse Rate 93 03/20/25 17:42 Respiratory Rate 17 03/20/25 17:42 Blood Pressure 128/83 03/20/25 17:42 Pulse Oximetry (%) 99 03/20/25 17:42 Oxygen Delivery Method Room Air 03/20/25 17:42 RME Narrative: 25-year-old female, 7 weeks (), presents to the Emergency Department referred by her GUARD ENTRANCE REGISTRAR Dr. Allen for evaluation of persistent nausea and vomiting since last night. She reports inability to tolerate oral intake. She denies cough, runny nose, or vaginal bleeding. Past surgical history is notable for cholecystectomy. Allergies include penicillin (rash).Patient is Dr. Allen's manager medical affairs At 1751 hours, I called Dr. Allen and he would like the patient admitted after work-up is resulted.
[2025-03-20] MEDS: RINGERS LACTATED 1000 ML 1,000 ML 999 ML IV ×2 (18:15→19:57)
[2025-03-20 18:17] LABS: Collection Type, Urine Clean Catch
[2025-03-20 18:20] LABS: Basophils # (Auto) 0.0 Thou/mm3 (0.0-0.2); Basophils % (Auto) 0 % (0-2.5); Eosinophils # (Auto) 0.2 Thou/mm3 (0.0-0.5); Eosinophils % (Auto) 2 % (0-10); Hematocrit 40.3 % (36.0-46.0); Hemoglobin 13.8 g/dL (12.0-16.0); Immature Granulocytes Auto 0.02 Thou/mm3 (0.00-0.00); Lymphocytes # (Auto) 1.8 Thou/mm3 (1.0-4.8); Lymphocytes % (Auto) 18 % (10-50); Mean Corpuscular HGB Conc 34.2 g/dl (31.0-37.0); Mean Corpuscular Hemoglobin 30.3 pg (25.0-35.0); Mean Corpuscular Volume 88 fL (80-100); Monocytes # (Auto) 0.7 Thou/mm3 (0.0-0.8); Monocytes % (Auto) 6 % (0-12); Neutrophils # (Auto) 7.6 Thou/mm3 (1.8-7.7); Neutrophils % (Auto) 74 % (37-80); Nucleated Red Blood Cell # 0.00 Thou/mm3 (0.00-0.00); Nucleated Red Blood Cell % 0 /100 WBC (0); Platelet Count 315 Thou/mm3 (140-440); RDW Standard Deviation 40.2 fL (36.4-46.3); Red Blood Count 4.56 Miln/mm3 (4.00-5.20); White Blood Count 10.3 Thou/mm3 (3.6-11.0)
[2025-03-20 18:28] LABS: Bacteria,Urine 3+; Bilirubin,Urine Negative (Negative); Blood,Urine Negative (Negative); Clarity,Urine Turbid (Clear/Hazy); Color,Urine Yellow (Lt Yel-Yel); Glucose, Urine Negative (Negative); Ketones,Urine Negative (Negative); Leukocyte Esterase,Urine Positive (Negative); Nitrite,Urine Negative (Negative); PH,Urine 6.5 (5.0-7.0); Protein,Urine Negative (Neg - Trace); RBC,Urine 3 /hpf (0-3); Specific Gravity,Urine 1.026 (1.001-1.035); Squamous Epithelial Cell,Urine 7 /hpf (0-5); Urobilinogen,Urine Negative mg/dL (0.0-1.0); WBC,Urine 5 /hpf (0-5)
[2025-03-20 18:42] LABS: Alanine Aminotransferase 34 U/L (10-49); Albumin, Serum 4.9 gm/dL (3.5-5.0); Albumin/Globulin Ratio 1.9 (1.2-2.2); Alkaline Phosphatase 74 U/L (46-116); Anion Gap 10 (7-16); Aspartate Amino Transferase 24 U/L (0-34); BUN/Creatinine Ratio 18 Ratio (12-20); Bilirubin,Total 0.5 mg/dL (0.3-1.2); Blood Urea Nitrogen 11 mg/dL (9-23); Calcium 10.3 mg/dL (8.3-10.6); Calcium (Corrected) 10.3 mg/dL (8.5-10.1); Carbon Dioxide 23.0 mMol/L (20.0-31.0); Chloride 105 mMol/L (98-107); Creatinine (Component) 0.6 mg/dL (0.6-1.3); Estimated Creatinine Clearance 168.1 mL/min (>60); Globulin 2.6 gm/dL (2.3-3.5); Glucose 87 mg/dL (74-106); Osmolality,Calculated 274 (275-295); Potassium 3.9 mMol/L (3.4-5.1); Sodium 138 mMol/L (136-145); Total Protein 7.5 gm/dL (5.7-8.2); eGFR > 60 See Note
[2025-03-20 18:43] LABS: Culture Indicated,Urine Yes
[2025-03-20] MEDS: ONDANSETRON INJ 2 MG/ML INJ 2 ML 4 MG IVP (18:55)
--- NOTE | 2025-03-20 19:07 | PD.EDADULT ---
ED General RME/HPI General Chief complaint: Nausea/Vomiting/Diarrhea Stated complaint: VOMITING SINCE YESTERDAY AND 7 WKS PREG Time Seen by Provider: 03/20/25 17:39 Arrival date/time: 03/20/25 17:32 CC: Nausea vomiting HPI patient is a G1, P0 at estimated 7 weeks with persistent nausea since the inception of her in the last 24 hours patient states she has been unable to keep anything down . Patient denies fever chills vaginal bleeding vaginal discharge low abdominal cramping low back pain diarrhea or constipation. RME / HPI RME / HPI narrative: 25-year-old female, 7 weeks (), presents to the Emergency Department referred by her ELECTRICAL ENGINEER Dr. Allen for evaluation of persistent nausea and vomiting since last night. She reports inability to tolerate oral intake. She denies cough, runny nose, or vaginal bleeding. Past surgical history is notable for cholecystectomy. Allergies include penicillin (rash).Patient is Dr. Allen's medical biller/coder At 1751 hours, I called Dr. Allen and he would like the patient admitted after work-up is resulted. Related Data Previous Rx's ?Medication ?Instructions ?Recorded cholecalciferol (vitamin D3) 50 50 mcg PO QDAY 90 days #90 caps 03/03/25 mcg (2,000 unit) capsule ondansetron 4 mg disintegrating 4 mg PO Q6H PRN nausea and 03/03/25 tablet vomiting 30 days #120 tabs vits no.126-ferrous fum 1 tab PO QDAY 90 days #90 tabs 03/03/25 28 mg iron-folic acid 800 mcg tablet (Classic ) pyridoxine (vitamin B6) 100 mg 100 mg PO QDAY 90 days #90 tabs 03/03/25 tablet Allergies Allergy/AdvReac Type Severity Reaction Status Date / Time almond Allergy Severe Swelling Verified 03/20/25 17:34 of Lip/Tongue/Throat penicillin G Allergy Severe Vomiting Verified 03/20/25 17:34 Review of Systems Review of Systems Narrative Review of Systems: GEN: No fever, no chills, no weight loss EYES: No discharge, no visual changes, no pain HEENT: No ear pain, no congestion, no sore throat PULM: No shortness of breath, no cough, no congestion CV: No chest pain, no dyspnea on exertion, no palpitations GI: + nausea, + vomiting, no diarrhea, no pain, no constipation : No frequency, no urgency, no dysuria MUSC/SKEL: No joint pain, no back pain SKIN: No rash PSYCH: No hallucinations, no depression HEME/LYMPH: No easy bleeding or bruising tendencies NEURO: No weakness, no headache Past Medical History Past Medical History NEUROLOGIC: Negative Neurological Disorders or Seizures CARDIAC: Negative Cardiac Disorders or Congestive Heart Failure RESPIRATORY: Negative Chronic Obstructive Pulmonary Disease (COPD) or Asthma GASTROINTESTINAL: Positive Gastrointestinal Disorders and Obesity GENITOURINARY: Negative Genitourinary Disorders or Renal Disease MUSCULOSKELETAL: Negative Musculoskeletal Disorders ENDOCRINE: Negative Endocrine Disorders, Diabetes Mellitus Type 1 or Diabetes Mellitus Type 2 HEMATOLOGIC: Negative Blood Disorders or Sickle Cell Disease OTHER HISTORY: Positive Hospitalization and Falls; Negative Autoimmune Disease, Blood Transfusions, Blood Transfusion Reaction or Anesthesia Reactions Family History FAMILY HISTORY: Positive Family Cardiac Disorders and Family Surgery Surgical History SURGICAL: Positive Abdominal Surgery Social History SMOKING STATUS: Never smoker SECOND HAND EXPOSURE: No SUBSTANCE USE: does not use ED Exam Narrative Physical exam: [General: Obese in mild discomfort but not in any acute distress Head normocephalic HEENT: Mouth pink dry membranes uvula is midline swallow symmetrical phonation is normal eyes: Pupils are PERRLA EOMs are intact nose: No rhinorrhea. All of the subsystems of HEENT are within acceptable limits Neck is supple nontender Chest equal chest rise nontender to palpation Respiratory: Clear to auscultation no wheezes crackles or rubs CV: Rate rhythm is regular no murmurs rubs or clicks Abdomen is distended secondary to body habitus soft nontender no masses positive bowel sounds all 4 quadrants Back: No CVA tenderness no spinous process tenderness from cervical spine thoracic and lumbar spine Skin: Intact no petechiae rash induration ulceration or crepitus Extremities: Moving all extremities against resistance cap refill less than 2 seconds neurosensory intact. No lower extremity edema. Neuro: Awake alert oriented x3 Glascow coma 15 no focal deficits] Course Course Course Narrative: Assessment of the patient 1925 the patient continues to be nauseated without any active vomiting or vomiting. Will add promethazine to the ondansetron and metoclopramide the patient has already received. Patient's case discussed with Dr. Allen who appeared in the emergency room at 2014, he agrees to admit the patient for hyperemesis gravidarum. Quality Measures none Orders Category Date Time Status Bedside COVID-19 Antigen Test NOW Care 03/20/25 17:47 Active Bedside Influenza A&B Antigen Test NOW Care 03/20/25 17:48 Completed COVID-19 Screening Questionnaire NOW Care 03/20/25 20:15 Active Decision to Admit X1 Care 03/20/25 20:15 Completed US OB <= 14 weeks fetus Stat Exams 03/20/25 17:47 Completed Beta HCG,Quantitative Stat Lab 03/20/25 18:10 Completed CBC Stat Lab 03/20/25 18:10 Completed CMP [Comprehensive Metabolic Panel] Stat Lab 03/20/25 18:10 Completed UA, C/S IF [Urinalysis, C/S if Indicated] Stat Lab 03/20/25 18:10 Completed Urine Culture Stat Lab 03/20/25 18:10 Received Metoclopramide [Reglan] Med 03/20/25 17:47 Discontinued 5 mg PO X1 ONE Ondansetron Inj [Zofran Inj] Med 03/20/25 17:49 Discontinued 4 mg IVP X1 ONE Promethazine Inj [Phenergan Inj] 12.5 mg Med 03/20/25 19:25 Discontinued Sodium Chloride 0.9% [Ns] 50 ml IV X1 Promethazine Inj [Phenergan Inj] 12.5 mg Med 03/20/25 20:21 Discontinued Sodium Chloride 0.9% [Ns] 50 ml IV X1 Ringers Lactated 1000 ml [Lactated Ringers] 1,000 ml Med 03/20/25 17:47 Discontinued IV 999 mls/hr Ringers Lactated 1000 ml [Lactated Ringers] 1,000 ml Med 03/20/25 19:14 Discontinued IV 999 mls/hr Vital Signs Vital signs: Vital Signs Temperature 99.0 F 03/20/25 17:42 Pulse Rate 93 03/20/25 17:42 Respiratory Rate 17 03/20/25 17:42 Blood Pressure 128/83 03/20/25 17:42 Pulse Oximetry (%) 99 03/20/25 17:42 Oxygen Delivery Method Room Air 03/20/25 17:42 Discharge Plan Plan Patient Disposition: Other Care w/in Hosp (SDC/FIGUEROA) Problem List Clinical Impression: Hyperemesis gravidarum MENDOZA/BUSINESS INVESTOR Supervising Physician MENDOZA/BUSINESS INVESTOR Supervising Physician: Lev Jones ENP [facility] Clinical Information Provided by: patient Medical Records reviewed [facility] Meds/Rx considered, not ordered None Labs/Rad/Tests considered, not ordered None Chronic Illness/Social Conditions Explain: , G1, P0 Labs Lab(s) Interpretation(s): CBC shows no acute leukocytosis anemia thrombocytopenia CMP shows no significant electrolyte imbalances renal impairment transaminitis or T. bili elevation. Urine: Turbid spec gravity of 1.026. Leukocyte esterase positive squamous epithelial at 73+ bacteria WBCs at 5 Medication Administration(s) Medication Administration History Acetaminophen (Acetaminophen 325 Mg Tablet) 500 mg PO Q6HR PRN PRN Reason: Fever >101.5 Stop: 04/19/25 20:26 Diphenhydramine HCl (Diphenhydramine Inj 50 Mg/Ml Vial) 25 mg IVP Q6HR PRN PRN Reason: Allergic Symptoms Stop: 04/19/25 20:29 Dextrose/Sodium Chloride (D5-1/2ns) 1,000 mls @ 100 mls/hr IV .Q10H BASILIO Stop: 04/19/25 20:29 Metoclopramide HCl (Metoclopramide 5 Mg Tablet) 10 mg PO Q8HR PRN PRN Reason: NAUSEA OR VOMITING Stop: 04/19/25 20:29 Ondansetron HCl (Ondansetron Inj 2 Mg/Ml Inj 2 Ml) 4 mg IV Q6HR PRN PRN Reason: NAUSEA OR VOMITING Stop: 04/19/25 20:26 Discontinued Medications Diphenhydramine HCl (Diphenhydramine Inj 50 Mg/Ml Vial) 25 mg IVP Q6HR PRN PRN Reason: NAUSEA OR VOMITING Stop: 04/19/25 20:29 Lactated Ringer's (Lactated Ringers) 1,000 mls @ 999 mls/hr IV .Q1H1M ONE Stop: 03/20/25 18:47 Last Infusion: 03/20/25 19:55 Dose: Infused Documented By: Admin: 03/20/25 18:15 Dose: 999 mls/hr Documented By: JUAN Lactated Ringer's (Lactated Ringers) 1,000 mls @ 999 mls/hr IV .Q1H1M ONE Stop: 03/20/25 20:14 Last Admin: 03/20/25 19:57 Dose: 999 mls/hr Documented By: CASANDRA Promethazine HCl 12.5 mg/ (Sodium Chloride) 50.5 mls @ 2.5 mls/min IV X1 ONE; Protocol Stop: 03/20/25 19:45 Last Admin: 03/20/25 20:27 Dose: Not Given Documented By: YAHIR Non-Admin Reason: Discontinued Promethazine HCl 12.5 mg/ (Sodium Chloride) 50.5 mls @ 2.5 mls/min IV X1 ONE; Protocol Stop: 03/20/25 20:41 Last Admin: 03/20/25 20:31 Dose: 2.5 mls/min Documented By: GONZALO Metoclopramide HCl (Metoclopramide 5 Mg Tablet) 5 mg PO X1 ONE Stop: 03/20/25 17:48 Last Admin: 03/20/25 18:56 Dose: Not Given Documented By: SÁNCHEZ Non-Admin Reason: Cancelled by Provider Ondansetron HCl (Ondansetron Inj 2 Mg/Ml Inj 2 Ml) 4 mg IVP X1 ONE; Protocol Stop: 03/20/25 17:50 Last Admin: 03/20/25 18:55 Dose: 4 mg Documented By: SÁNCHEZ
[2025-03-20 19:18] LABS: Beta HCG,Quantitative 102448 mIU/mL (<5.0)
[2025-03-20] MEDS: PROMETHAZINE INJ 12.5 MG in SODIUM CHLORIDE 0.9% 50 ML 2.5 MG IV (20:31)
[2025-03-20 20:32] VITALS: BP 128/82; PULSE 84; RESP 18; O2SAT 100
--- NOTE | 2025-03-20 20:32 | PD.LDANTE ---
Documentation for date of: 03/20/25 OB Labor/Induct. HPI History of Present Illness Chief complaint: Hyperemesis History of present illness: Chief Complaint Intractable nausea and intermittent vomiting at 11 weeks and 5 days gestation Patient is a 25-year-old at 11 weeks and 5 days gestation by last menstrual period (measuring 7 weeks by ultrasound), presenting with intractable nausea and intermittent vomiting. She reports severe nausea throughout the day, accompanied by intermittent vomiting. She has been unable to keep any food down and has tried various home remedies, including sagrario and mint, without any benefit. Prior to her ER visit, she was seen in the office and started on Dicages and Zofran, but she reports no improvement in her symptoms. Upon initial presentation to the ER, she received IV fluids and Zofran, which did not alleviate her symptoms. Subsequently, she was given Phenergan, which provided some relief. The severity of her symptoms has significantly impacted her daily functioning, necessitating an emergency room visit and potential overnight admission for observation and treatment. The patient's condition appears to be resistant to initial outpatient management attempts, indicating a need for more intensive intervention. Obstetric History: - GPAL: A0 L0 - Current : Gestational age 11 weeks and 5 days by last menstrual period, measuring 7 weeks by ultrasound Meds Home Medications and Allergies Allergies Allergy/AdvReac Type Severity Reaction Status Date / Time almond Allergy Severe Swelling Verified 03/20/25 17:34 of Lip/Tongue/Throat penicillin G Allergy Severe Vomiting Verified 03/20/25 17:34 OB Exam Physical Exam Vital signs: Temp Pulse Resp BP Pulse Ox O2 Del Method 99.0 F 93 17 128/83 99 Room Air 03/20/25 17:42 03/20/25 17:42 03/20/25 17:42 03/20/25 17:42 03/20/25 17:42 03/20/25 17:42 Constitutional Constitutional: no acute distress Routine HEENT Exam Head: Present normocephalic and atraumatic Eye: Present EOMI and PERRL ENT: Present mucous membranes moist Routine Neck Exam Neck: Present supple and trachea midline Routine Cardiovascular Exam Cardiovascular: Present RRR Routine Abdominal Exam Abdominal: Present soft and normoactive bowel sounds Routine Extremities Exam Extremities: Present full ROM Routine Skin Exam Skin: Present intact, dry and warm Routine Neurological Exam Neurological: Present alert, oriented X3 and CN II-XII intact Routine Psychiatric Exam Psychiatric: Present normal affect and normal thought process OB Results Labs 03/20/25 18:10 03/20/25 18:10 Labs: Short CBC 03/20/25 Range/Units 18:10 WBC 10.3 (3.6-11.0) Thou/mm3 Hgb 13.8 (12.0-16.0) g/dL Hct 40.3 (36.0-46.0) % Plt Count 315 (140-440) Thou/mm3 BMP 03/20/25 18:10 Sodium 138 Potassium 3.9 Chloride 105 Carbon Dioxide 23.0 BUN 11 Creatinine 0.6 Glucose 87 Calcium 10.3 Liver Function 03/20/25 Range/Units 18:10 Total Bilirubin 0.5 (0.3-1.2) mg/dL AST 24 (0-34) U/L ALT 34 (10-49) U/L Alkaline Phosphatase 74 (46-116) U/L Albumin 4.9 (3.5-5.0) gm/dL Urine 03/20/25 Range/Units 18:10 Urine Color Yellow (Lt Yel-Yel) Urine Clarity Turbid A (Clear/Hazy) Urine pH 6.5 (5.0-7.0) Ur Specific Butler 1.026 (1.001-1.035) Urine Protein Negative (Neg - Trace) Urine Glucose (UA) Negative (Negative) OB Assessment & Plan Assessment and Plan (1) Hyperemesis gravidarum: Status: Acute Assessment and plan: Hyperemesis Gravidarum Assessment: Patient presents with severe nausea and vomiting in , unresponsive to outpatient management with Diclegis and Zofran. She has been unable to keep food down throughout the day and has not found relief with home remedies. Initial management in the ER with IV fluids and Zofran was ineffective, but Phenergan provided some symptom relief. Given the severity and persistence of symptoms, as well as the potential for dehydration and electrolyte imbalances, inpatient management is warranted. Plan: - Admit for overnight observation - Administer IV hydration - Continue IV antiemetic therapy - Optimize regimen based on symptom response - Monitor symptoms throughout admission - Anticipate discharge home tomorrow pending clinical improvement Intrauterine Assessment: Viable intrauterine confirmed by ultrasound. heart rate of 171 bpm noted. Gestational age discrepancy observed between LMP dating (11 weeks 5 days) and ultrasound measurement (7 weeks), which may require further evaluation and dating adjustment. Plan: - Continue routine care (2) Supervision of high risk , unspecified, first trimester: Status: Acute OB Ultrasound OB Ultrasound Gestational sac assessment: Presence, location, size, shape: Findings: A normal shaped single intrauterine gestation is present in the uterus. CRL 1.4 cm corresponds to 7 weeks 5 day gestational age Cardiac motion 171 BPM Ultrasonographic survey of visible and placental structures unremarkable. Amniotic fluid volume appears appropriate for this estimated gestational age. Right ovary 4.1 cm arterial flow. Left ovary obscured by bowel gas
[2025-03-20 21:18] VITALS: BMI 39.3
[2025-03-20 21:40] VITALS: BP 118/61; PULSE 79; RESP 18; TEMP 36.6; O2SAT 97
[2025-03-20] MEDS: DEXTROSE 5%-0.45% NS 1,000 ML 100 ML IV (22:08)
[2025-03-21] VITALS: BP 99/56; PULSE 73; RESP 18; TEMP 36.2; O2SAT 98
[2025-03-21 04:00] VITALS: BP 116/59; PULSE 70; RESP 16; TEMP 36.3; O2SAT 97
[2025-03-21 06:08] LABS: Basophils # (Auto) 0.0 Thou/mm3 (0.0-0.2); Basophils % (Auto) 0 % (0-2.5); Eosinophils # (Auto) 0.1 Thou/mm3 (0.0-0.5); Eosinophils % (Auto) 2 % (0-10); Hematocrit 34.6 % (36.0-46.0); Hemoglobin 11.7 g/dL (12.0-16.0); Immature Granulocytes Auto 0.02 Thou/mm3 (0.00-0.00); Lymphocytes # (Auto) 1.9 Thou/mm3 (1.0-4.8); Lymphocytes % (Auto) 23 % (10-50); Mean Corpuscular HGB Conc 33.8 g/dl (31.0-37.0); Mean Corpuscular Hemoglobin 30.5 pg (25.0-35.0); Mean Corpuscular Volume 90 fL (80-100); Monocytes # (Auto) 0.6 Thou/mm3 (0.0-0.8); Monocytes % (Auto) 7 % (0-12); Neutrophils # (Auto) 5.7 Thou/mm3 (1.8-7.7); Neutrophils % (Auto) 68 % (37-80); Nucleated Red Blood Cell # 0.00 Thou/mm3 (0.00-0.00); Nucleated Red Blood Cell % 0 /100 WBC (0); Platelet Count 220 Thou/mm3 (140-440); RDW Standard Deviation 41.5 fL (36.4-46.3); Red Blood Count 3.83 Miln/mm3 (4.00-5.20); White Blood Count 8.4 Thou/mm3 (3.6-11.0)
[2025-03-21 06:36] LABS: Alanine Aminotransferase 25 U/L (10-49); Albumin, Serum 3.9 gm/dL (3.5-5.0); Albumin/Globulin Ratio 2.0 (1.2-2.2); Alkaline Phosphatase 56 U/L (46-116); Anion Gap 7 (7-16); Aspartate Amino Transferase 22 U/L (0-34); BUN/Creatinine Ratio 13 Ratio (12-20); Bilirubin,Total 0.5 mg/dL (0.3-1.2); Blood Urea Nitrogen 8 mg/dL (9-23); Calcium 9.0 mg/dL (8.3-10.6); Calcium (Corrected) 9.1 mg/dL (8.5-10.1); Carbon Dioxide 24.2 mMol/L (20.0-31.0); Chloride 108 mMol/L (98-107); Creatinine (Component) 0.6 mg/dL (0.6-1.3); Estimated Creatinine Clearance 169.9 mL/min (>60); Globulin 2.0 gm/dL (2.3-3.5); Glucose 82 mg/dL (74-106); Osmolality,Calculated 274 (275-295); Potassium 3.8 mMol/L (3.4-5.1); Sodium 139 mMol/L (136-145); Total Protein 5.9 gm/dL (5.7-8.2); eGFR > 60 See Note
[2025-03-21 08:00] VITALS: BP 121/70; PULSE 81; RESP 17; TEMP 36.2; O2SAT 98
[2025-03-21] MEDS: DEXTROSE 5%-0.45% NS 1,000 ML 100 ML IV (08:19)
--- NOTE | 2025-03-21 08:32 | ESPR_ITS ---
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 Nausea has significantly improved. No new episodes of emesis. Exam Vital Signs Temp Pulse Resp BP Pulse Ox O2 Del Method 97.3 F 70 16 116/59 L 97 Room Air 03/21/25 04:00 03/21/25 04:00 03/21/25 04:00 03/21/25 04:00 03/21/25 04:00 03/21/25 04:00 Constitutional Constitutional: no acute distress Routine HEENT Exam Head: Present normocephalic and atraumatic Eye: Present EOMI and PERRL ENT: Present mucous membranes moist Routine Neck Exam Neck: Present supple and trachea midline Routine Respiratory Exam Respiratory: Present chest non-tender, lungs clear, normal breath sounds and no resp distress Routine Cardiovascular Exam Cardiovascular: Present RRR Routine Abdominal Exam Abdominal: Present soft and normoactive bowel sounds Routine Extremities Exam Extremities: Present full ROM Routine Skin Exam Skin: Present intact and dry Routine Neurological Exam Neurological: Present alert, oriented X3 and CN II-XII intact Routine Psychiatric Exam Psychiatric: Present normal affect and normal thought process Urinary Catheter Management Cath placed during this visit: no 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: Obj Data Labs 03/21/25 05:10 03/21/25 05:10 Labs: Laboratory Results - last 24 hr 03/20/25 03/21/25 18:10 05:10 WBC 10.3 8.4 RBC 4.56 3.83 L Hgb 13.8 11.7 L D Hct 40.3 34.6 L MCV 88 90 MCH 30.3 30.5 MCHC 34.2 33.8 RDW Std Deviation 40.2 41.5 Plt Count 315 220 D Neut % (Auto) 74 68 Lymph % (Auto) 18 23 [place] % (Auto) 6 7 Eos % (Auto) 2 2 Baso % (Auto) 0 0 Neut # (Auto) 7.6 5.7 Lymph # (Auto) 1.8 1.9 [place] # (Auto) 0.7 0.6 Eos # (Auto) 0.2 0.1 Baso # (Auto) 0.0 0.0 Immature Gran # (Auto) 0.02 H 0.02 H Absolute Nucleated RBC 0.00 0.00 Immature Gran % 0 0 Nucleated RBC % 0 0 Sodium 138 139 Potassium 3.9 3.8 Chloride 105 108 H Carbon Dioxide 23.0 24.2 Anion Gap 10 7 BUN 11 8 L Creatinine 0.6 0.6 Estim Creat Clear Calc 168.1 169.9 eGFR > 60 > 60 BUN/Creatinine Ratio 18 13 Glucose 87 82 Calculated Osmolality 274 L 274 L Calcium 10.3 9.0 Corrected Calcium 10.3 H 9.1 Total Bilirubin 0.5 0.5 AST 24 22 ALT 34 25 Alkaline Phosphatase 74 56 D Total Protein 7.5 5.9 Albumin 4.9 3.9 D Globulin 2.6 2.0 L Albumin/Globulin Ratio 1.9 2.0 Beta HCG, Quant [id number] Ur Collection Type Clean Catch Urine Color Yellow Urine Clarity Turbid A Urine pH 6.5 Ur Specific [place] 1.026 Urine Protein Negative Urine Glucose (UA) Negative Urine Ketones Negative Urine Blood Negative Urine Nitrite Negative Urine Bilirubin Negative Urine Urobilinogen (Auto) Negative Ur Leukocyte Esterase Positive Urine RBC 3 Urine WBC 5 Ur Squamous Epith Cells 7 H Urine Bacteria 3+ A Ur Culture Indicated? 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 Will send home on the same regimen. Follow-up as outpatient. (2) Supervision of high risk , unspecified, first trimester: Status: Acute Time Spent With Patient Time: Total time spent is greater than 50% in coordination of care (as documented) at patient's floor/unit and/or counseling patient: Time with patient: less than 15 minutes
== END 2025-03-21 10:03 | disposition home or self-care (01) ==
LOC: SERX 20:14 → SERHOLD 20:50 → S3SX 21:20
PROVIDERS: Emergency Medicine; Admitting Provider Obstetrics & Gynecology; Emergency Provider Emergency Medicine; PCP Nurse Practitioner Family; Visit Provider Obstetrics & Gynecology
DX: O21.0 Mild hyperemesis gravidarum (principal); Z3A.11 11 weeks gestation of pregnancy; O09.91 Supervision of high risk pregnancy, unspecified, first trimester
CPT/HCPCS: 36415; 76801; 80053; 81001; 84702; 85025; 87086; 87400; 87811; 96361; 96365; 96375; 99284; G0378; J2405; J2550; J7042; J7120

== ENCOUNTER 2025-04-22 11:19 | Outpatient (AMB) | payer MEDICAID, SELFPAY ==
[2025-04-22 11:44] VITALS: BP 142/82; PULSE 96; RESP 18; TEMP 36.2; O2SAT 98; BMI 38.9
--- NOTE | 2025-04-22 11:44 | AMB.OBINITIA ---
Vital Signs 04/22/25 11:44 Height 1.63 m Height Method Stated Weight 103.022 kg Weight Measurement Method Standing Scale BMI 38.9 BP 142/82 H Blood Pressure Source Automatic Cuff Blood Pressure Location Left Upper Arm Position Sitting Respiration 18 Pulse 96 Pulse Source Monitor Temp 97.2 F Temp Source Oral Pulse Oximetry (%) 98 Oxygen Delivery Method Room Air Allergies/Home Meds Allergies & Medications Allergies almond Allergy (Severe, Verified 04/22/25 11:45) Swelling of Lip/Tongue/Throat penicillin G Allergy (Severe, Verified 04/22/25 11:45) Vomiting Medication Reconciliation cholecalciferol (vitamin D3) 50 mcg (2,000 unit) capsule 50 mcg PO QDAY 90 days #90 caps 03/03/25 [Rx Confirmed 04/22/25] ondansetron 4 mg disintegrating tablet 4 mg PO Q6H PRN nausea and vomiting 30 days #120 tabs 03/03/25 [Rx Confirmed 04/22/25] vits no.126-ferrous fum 28 mg iron-folic acid 800 mcg tablet (Classic ) 1 tab PO QDAY 90 days #90 tabs 03/03/25 [Rx Confirmed 04/22/25] pyridoxine (vitamin B6) 100 mg tablet 100 mg PO QDAY 90 days #90 tabs 03/03/25 [Rx Confirmed 04/22/25] Intake Visit Data Collection New Patient or Established: Established Patient (seen at [facility] within 3 years) Reason for Visit:: INITIAL CARE Seen by Clinical Staff ONLY (RN/MA): No Upset Operator Required: No Do You Feel Safe at Home: Yes Authorities Contacted: N/A PCP or OBGYN visit in last 3 months: Yes Hx Now: Yes Are you currently on any form of Control: No Last menstrual period: 01/27/25 Pain Present Currently: No Pain Scale Used: Mckay-Galeas/Numerical Pain scale:: 0 Smoking Status Smoking Status: Never smoker Immunizations Flu Vaccine in the Last 12 Months: Yes Date of most recent flu vaccination: 03/14/25 Flu Vaccine Exclusion Criteria: Already Received Questionnaires Covid-19 Vaccine Questionnaire Has patient been vacinated for Covid-19 Have you been vacinated for Covid-19: Yes PHQ-9 PHQ-2 Over the last 2 weeks, how often have you been bothered by any of the following problems? 1. Little interest or pleasure in doing things: not at all 2. Feeling down, depressed, or hopeless: not at all Total score: 0 PHQ-9 3. Trouble falling or staying asleep, or sleeping too much: Not at all 4. Feeling tired or having little energy: Not at all 5. Poor appetite or overeating: Not at all 6. Feeling bad about yourself - or that you are a failure or have let yourself or your family down: Not at all 7. Trouble concentrating on things, such as reading the newspaper or watching television: Not at all 8. Moving or speaking so slowly that other people could have noticed? - Or the opposite - being so fidgety or restless that you have been moving around a lot more than usual: not at all 9. Thoughts that you would be better off or of hurting yourself in some way: Not at all Total score: 0 Source: Developed by Drs. Rome Rodríguez, Jammie Jay, Richie Rae and colleagues, with an educational nae from [employer]. 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 Past Medical History: No Hx Neurological Disorders, No Hx Cardiac Disorders, No Hx Blood Disorders, No Hx Gastrointestinal Disorders, No Hx Renal Disease, No Hx Diabetes Mellitus Type 1 and No Hx Diabetes Mellitus Type 2 OB Initial Visit Menstrual History Menstrual reliability: definite Flow: heavy Menstrual regularity: irregular Monthly: Yes Age at menarche: 17 On control pills at conception: No Associated symptoms (LMP): Reports nausea, vomiting, fatigue and breast tenderness OB History : 1 # of Living Children: 0 Infection History & Risk Evaluation History of STDs: none Genetic Screening & History Genetic Screening/Teratology Counseling - Includes patient, baby's father, or anyone in either family with: 1. Patient's age 35 years or older as of estimated date of delivery: No 2. Thalassemia (Cymro, Guinean, Mediterranean, or Background); MCV less than 80: No 3. Neural Tube Defect (Meningomyelocele, Spina Bifida, or Anencephaly): No 4. Congenital Heart Defect: No 5. Down Syndrome: No 6. Kris-Sachs (Ashkenazi Christianity, Cajun, Mongolian [place]): No 7. Skye Disease (Ashkenazi Christianity): No 8. Familial Dysautonomia (Ashkenazi Christianity): No 9. Sickle Cell Disease or Trait (): No 10. Hemophilia or other blood disorders: No 11. Muscular Dystrophy: No 12. Cystic Fibrosis: No 13. Mind[place]'s Chorea: No 14. Mental Retardation/Autism: No 15. Other inherited genetic or chromosomal disorder: No 16. Maternal Metabolic Disorder (EG,TYPE 1 Diabetes, PKU): No 17. Patient or baby's father had a child with defects not listed above: No 18. Recurrent loss or a stillbirth: No 19. Medications (including supplements, vitamins, herbs or otc drugs)/illicit/recreational drugs/alcohol since last menstrual period: No 20. Any other: No Infection History 1. Live with someone with TB or exposed to TB: No 2. Rash or viral illness since last menstrual period: No 3. Hepatitis B,C: No Other (see comments) Source: [employer] Review of Systems Constitutional Constitutional: Reports fatigue Gastrointestinal Gastrointestinal: Reports nausea and Reports vomiting Endocrine Endocrine: Reports fatigue Office Procedures [facility] LOC & Office Proc's Nursing/Assessment Patient Status: Established Patient OB Clinic Nursing Assessment: Medication Reconciliation, Update PMH in EMR and Vital Signs OB Clinic Coordination of Care: Complex Care and Chronic Disease 1-5, Consent,records obtained, informed consent, Education Simp Pt/Fam, 1 Ins Authorization, Lab and Imaging orders, Results/Orders obtained and Staff clarify orders Special Needs: Heart tones Established Patient Charge Established Patient Point Assignment: 150 Established Patient Point Charge: EP Level 4 (120-155) Assessment & Plan Diagnosis / Problem List (1) Supervision of high risk , unspecified, first trimester: Status: Acute (2) Hyperemesis gravidarum: Status: Acute
== END 2025-04-22 12:00 | disposition home or self-care (01) ==
LOC: HODSOBC 11:19
PROVIDERS: PCP Nurse Practitioner Family; Referring Provider Nurse Practitioner Family; Supervising Provider Obstetrics & Gynecology; Visit Provider Obstetrics & Gynecology
DX: O09.891 Supervision of other high risk pregnancies, first trimester (principal); O21.0 Mild hyperemesis gravidarum; Z3A.00 Weeks of gestation of pregnancy not specified; Z88.0 Allergy status to penicillin; Z91.018 Allergy to other foods
CPT/HCPCS: 99214; G0463

== ENCOUNTER 2025-05-18 20:19 | Emergency (ER) | payer MEDICAID, SELFPAY ==
[2025-05-18 20:20] VITALS: BMI 38.6
[2025-05-18 20:53] VITALS: BP 143/87; PULSE 88; RESP 18; TEMP 36.7; O2SAT 99
--- NOTE | 2025-05-18 21:03 | XR_ITS ---
Examination: Complete OB ultrasound greater than 14 weeks Date and time of exam: May 18, 2025, 211 hours INDICATIONS: Vaginal bleeding onset today Findings: Viable intrauterine single fetus with single amniotic sac presentation cephalic Cardiac motion 148 bpm Placenta posterior grade 1 Umbilical cord insertion 3 vessel seen Amniotic fluid by hematocrit spine maternal left Cervix 3.3 cm Ovaries obscured by bowel gas. Composite estimated gestational age based on BPD, head circumference, abdominal circumference, femur length is 16 weeks 5 days Estimated weight 160 g. Survey of intracranial anatomy, spinal anatomy, abdominal anatomy, four-chamber heart performed with no abnormalities identified. IMPRESSION: Viable intrauterine gestation cephalic presentation.
--- NOTE | 2025-05-18 21:06 | PD.EDVAGBL ---
ED OB Contraction Preg RMI/HPI General Chief complaint: Vaginal Bleeding Stated complaint: 16 WEEKS , VAG BLEEDING Time Seen by Provider: 05/18/25 20:54 Arrival date/time: 05/18/25 20:19 25-year-old female approximately 16 weeks gestation reports with complaints of vaginal bleeding x 1 day. Patient also reports some urinary frequency but no dysuria no urinary incontinence. Patient denies taking any medications for symptoms Limitations: no limitations Related Data Previous Rx's ?Medication ?Instructions ?Recorded cholecalciferol (vitamin D3) 50 50 mcg PO QDAY 90 days #90 caps 03/03/25 mcg (2,000 unit) capsule ondansetron 4 mg disintegrating 4 mg PO Q6H PRN nausea and 03/03/25 tablet vomiting 30 days #120 tabs vits no.126-ferrous fum 1 tab PO QDAY 90 days #90 tabs 03/03/25 28 mg iron-folic acid 800 mcg tablet (Classic ) pyridoxine (vitamin B6) 100 mg 100 mg PO QDAY 90 days #90 tabs 03/03/25 tablet Allergies Allergy/AdvReac Type Severity Reaction Status Date / Time almond Allergy Severe Swelling Verified 04/22/25 11:45 of Lip/Tongue/Throat penicillin G Allergy Severe Vomiting Verified 04/22/25 11:45 Review of Systems Constitutional Constitutional: Denies chills, Denies fever(s) and Denies headache(s) ENT Ears, Nose, Mouth, and Throat: Denies dizziness and Denies headache(s) Cardiovascular Cardiovascular: Denies chest pain and Denies dyspnea Respiratory Respiratory: Denies cough and Denies dyspnea Gastrointestinal Gastrointestinal: Denies nausea and Denies vomiting Genitourinary Genitourinary: Reports abnormal vaginal bleeding and Reports dysuria Musculoskeletal Musculoskeletal: Denies back pain and Denies myalgias Integumentary/Breasts Skin/Breast: Denies lesions and Denies rash Neurologic Neurologic: Denies dizziness and Denies headache(s) Past Medical History Past Medical History NEUROLOGIC: Negative Neurological Disorders or Seizures CARDIAC: Negative Cardiac Disorders or Congestive Heart Failure RESPIRATORY: Negative Chronic Obstructive Pulmonary Disease (COPD) or Asthma GASTROINTESTINAL: Positive Obesity; Negative Gastrointestinal Disorders GENITOURINARY: Negative Genitourinary Disorders or Renal Disease MUSCULOSKELETAL: Negative Musculoskeletal Disorders ENDOCRINE: Negative Endocrine Disorders, Diabetes Mellitus Type 1 or Diabetes Mellitus Type 2 HEMATOLOGIC: Negative Blood Disorders or Sickle Cell Disease OTHER HISTORY: Negative Hospitalization, Autoimmune Disease, Falls, Blood Transfusions, Blood Transfusion Reaction or Anesthesia Reactions Family History FAMILY HISTORY: Positive Family Cardiac Disorders and Family Surgery Surgical History SURGICAL: Positive Abdominal Surgery Social History SMOKING STATUS: Never smoker SECOND HAND EXPOSURE: No SUBSTANCE USE: does not use ED Exam General Limitations: Present no limitations General appearance: Present alert and in no apparent distress Abdominal Exam Abdominal exam: Present soft and normal bowel sounds External exam: Present normal external exam and erythema Speculum exam: Present normal speculum exam and erythema Bimanual exam: Present normal bimanual exam; Absent cervical motion tenderness, adnexal tenderness, adnexal mass or uterine tenderness Extremities Exam Extremities exam: Present normal inspection and full ROM Back Exam Back exam: Present normal inspection and full ROM Neurological Exam Neurological exam: Present alert, oriented X3 and CN II-XII intact Psychiatric Psychiatric exam: Present normal affect and normal mood Skin Skin exam: Present warm, dry, intact and normal color Course Course Course Narrative: A 24-year-old female, G1, P0, approximately 16 weeks gestation, presents with complaints of vaginal bleeding. Ultrasound results show a viable intrauterine , and beta-hCG levels are above 16,000. The patient underwent a benign gynecological exam. A urine sample was contaminated, and the patient is unable to provide a new sample. She denies any urinary symptoms, so a repeat urine analysis is not indicated at this time. The patient is currently stable, appears non-toxic, and has stable vital signs. She will be discharged home with advice to follow up with her EXTENSION ASSOCIATE. The differential diagnosis includes vaginal bleeding during , threatened , and acute cystitis. Quality Measures none Orders Category Date Time Status Pelvic Exam X1 Care 05/18/25 21:03 Active US OB >= 14 weeks Fetus Stat Exams 05/18/25 21:03 Completed Beta HCG,Quantitative Stat Lab 05/18/25 21:09 Completed Chlamydia/GC/TV - PCR Stat Lab 05/18/25 21:16 Received UA, C/S IF [Urinalysis, C/S if Indicated] Stat Lab 05/18/25 21:16 Completed Vital Signs Vital signs: Vital Signs Temperature 98.0 F 05/18/25 20:53 Pulse Rate 88 05/18/25 20:53 Respiratory Rate 18 05/18/25 20:53 Blood Pressure 143/87 H 11/19/25 20:53 Pulse Oximetry (%) 99 05/18/25 20:53 Oxygen Delivery Method Room Air 05/18/25 20:53 Vaginal Bleeding Patient data External records reviewed:: None Clinical information provided by:: patient Social determinants that could affect healthcare access:: none Patient has the following chronic illnesses:: None How is presenting disease/condition affected by chronic disease/condition?: no chronic disease Evaluation data The following diagnostics were reviewed and interpreted by me:: lab results and radiology exam(s) Lab and/or radiology exams considered but not ordered:: None Interpretation Summary: Viable 16-week gestation Medications / Prescriptions Medications or Prescriptions considered but not ordered:: None Medication administrations:: None Consultations Consultation(s) initiated? (list below): No Diagnosis Vaginal Bleeding Differential Diagnosis: threatened , dysfunctional uterine bleeding and vaginal bleeding Most likely diagnosis given after review of the tests above:: Threatened Admission Indicated Admission indicated?: not indicated Admission Request Was there a request for admission?: No Disposition Plan Disposition Plan: Discharge Discharge Attestation Discharge Attestation: The patient and all family members were given an opportunity to ask questions and understood the discharge instructions. Discharge instructions specifically effects, indications for sooner follow up or return to the emergency department, and the expected course of current diagnosis. Patient condition: Stable Discharge Plan Plan Patient Disposition: HOME (Self Care) Prescriptions/Referrals Prescriptions/Med Rec: No Action pyridoxine (vitamin B6) 100 mg tablet 100 mg PO QDAY 90 Days Qty: 90 6RF ondansetron 4 mg tablet,disintegrating 4 mg PO Q6H PRN (Reason: nausea and vomiting) 30 Days Qty: 120 2RF cholecalciferol (vitamin D3) 50 mcg (2,000 unit) capsule 50 mcg PO QDAY 90 Days Qty: 90 6RF Classic 28 mg iron- 800 mcg tablet 1 tab PO QDAY 90 Days Qty: 90 8RF Referrals: Kobi Ge FNP [Primary Care Provider] - In 1 week Problem List Clinical Impression: Threatened Patient/Caregiver Discharge Instructions Discharge Activity: activity as tolerated Education Materials: ED Possible Miscarriage ... Additional Instructions: follow up in 48 hours with your OBGYN or the ER for a repeat beta HCG test Print Language: Thai Stand Alone Forms: Kori Award Info., Patient Portal Info Letter
[2025-05-18 21:51] LABS: Collection Type, Urine Clean Catch
[2025-05-18 22:00] LABS: Bacteria,Urine 3+; Bilirubin,Urine Negative (Negative); Blood,Urine Trace (Negative); Calcium Oxalate Crystals,Urine 3+; Color,Urine Yellow (Lt Yel-Yel); Culture Indicated,Urine Contaminated; Glucose, Urine Negative (Negative); Ketones,Urine Negative (Negative); Leukocyte Esterase,Urine Positive (Negative); Nitrite,Urine Negative (Negative); PH,Urine 6.5 (5.0-7.0); Protein,Urine Trace (Neg - Trace); RBC,Urine 10 /hpf (0-3); Specific Gravity,Urine 1.029 (1.001-1.035); Squamous Epithelial Cell,Urine 15 /hpf (0-5); Urobilinogen,Urine Negative mg/dL (0.0-1.0); WBC,Urine 16 /hpf (0-5)
[2025-05-18 22:01] LABS: Clarity,Urine Hazy (Clear/Hazy)
[2025-05-18 22:27] LABS: Beta HCG,Quantitative 16422 mIU/mL (<5.0)
[2025-05-18 22:52] VITALS: RESP 16
[2025-05-19 12:25] LABS: Chlamydia trachomatis PCR Negative (Not Detect); Neisseria Gonorrhoeae DNA PCR Negative (Not Detect); Trichomonas Negative (Negative)
== END 2025-05-18 22:52 | disposition home or self-care (01) ==
PROVIDERS: Physician Assistant; Emergency Provider Emergency Medicine; PCP Nurse Practitioner Family
DX: O20.0 Threatened abortion (principal); O21.9 Vomiting of pregnancy, unspecified; Z3A.16 16 weeks gestation of pregnancy
CPT/HCPCS: 36415; 76805; 81001; 84702; 87491; 87591; 87661; 99283

== ENCOUNTER 2025-05-25 11:40 | Outpatient (AMB) | payer MEDICAID, SELFPAY ==
[2025-05-25 11:59] VITALS: BP 118/80; PULSE 84; RESP 18; TEMP 36.7; O2SAT 98; BMI 39.4
--- NOTE | 2025-05-25 11:59 | OBCLNT_ITS ---
Vital Signs 05/25/25 11:59 Height 1.63 m Height Method Stated Weight 104.95 kg Weight Measurement Method Standing Scale BMI 39.4 BP 118/80 Blood Pressure Source Automatic Cuff Blood Pressure Location Right Upper Arm Position Sitting Respiration 18 Pulse 84 Pulse Source Monitor Temp 98.0 F Temp Source Temporal Artery Scan Pulse Oximetry (%) 98 Oxygen Delivery Method Room Air Allergies/Home Meds Allergies & Medications Allergies almond Allergy (Severe, Verified 05/25/25 12:00) Swelling of Lip/Tongue/Throat penicillin G Allergy (Severe, Verified 05/25/25 12:00) Vomiting Medication Reconciliation vits no.126-ferrous fum 28 mg iron-folic acid 800 mcg tablet (Classic ) 1 tab PO QDAY 90 days #90 tabs 03/03/25 [Rx Confirmed 05/25/25] Immunizations Immunizations Flu Vaccine in the Last 12 Months: Yes Flu Vaccine Exclusion Criteria: Already Received Care OB Visit Log OB Flowsheet Initial Weight: Not Recorded Date -?-?-?-?-?-?-?-?-?-?-?-?- EGA Weight BP Alb Glu CTX Pres Fundal ht FHR Mov Dilation Station Effacement Hx Notes Visit Note 05/25/25 -?-?-?-?-?-?-?-?-?-?-?-?- 16w 6d 104.95 kg 118/80 absent 158 - She reports no current bleeding episodes. - Had a previous bleeding episode that occurred spontaneously while at home after work, but denies any recent bleeding. - Patient reports skin concerns with acn e that has been bothersome. - States that a previously recommended treatment is very painful and describes it as more like skin oil. - Notes presence of comedones. - She denies current nausea symptoms. - Patient is taking vitamins as prescribed. - She denies any recent hospitalizations or emergency department vi sits. - AFP test to be performed (patient elected to proceed) - Clindamycin topical prescribed for acn e treatment - Steam face treatments recommended to brandon ellis for acne management - Next appointment scheduled June 15 at 8 AM (4 weeks) - Continue vitamins - Patient to follow up with [facility] their scheduling list HAO Calculator Estimated Delivery Date Method Current WG Current Estimate 11/03/25 Ultrasound #1 17w 1d Other Estimates 10/04/25 LMP (Certain) 21w 3d Notes Visit Date: 05/25/25 Last Updated by: Domenico Allen MD Laboratory, Imaging, and Diagnostic Test Results - Date: 05/09/2025 - NIPT (Non-invasive Testing): Negative, gender consistent with female - SMA (Spinal Muscular Atrophy) testing: Negative - Cystic fibrosis testing: Negative - Obstetric ultrasound: Gestational age 16 weeks 6 days, heart rate 158 bpm, female fetus visualized with face and hands identified, placenta visualized Office Procedures [facility] Clinic LOC & Office Proc's Nursing/Assessment Patient Status: Established Patient OB Clinic Nursing Assessment: Medication Reconciliation, Update PMH in EMR and Vital Signs OB Clinic Coordination of Care: Complex Care and Chronic Disease 1-5, Education Complex Pt/Fam, Consent,records obtained, informed consent, Lab and Imaging orders, Results/Orders obtained and Staff clarify orders Special Needs: Heart tones Established Patient Charge Established Patient Point Assignment: 140 Established Patient Point Charge: EP Level 4 (120-155) Assessment & Plan Diagnosis / Problem List (1) Hyperemesis gravidarum: Status: Acute (2) Supervision of high risk , unspecified, first trimester: Status: Acute Plan Problem List - Acne Assessment 16 weeks 6 days intrauterine with female fetus progressing appropriately. Genetic screening results are reassuring with negative NIPT, SMA testing, and cystic fibrosis testing. heart rate is 158 bpm with normal anatomy visualization on ultrasound. Patient reports resolution of previous bleeding episode. -related acne with comedones is present. Patient reports improving nausea symptoms. Plan - AFP test to be performed (patient elected to proceed) - Clindamycin topical prescribed for acne treatment - Steam face treatments recommended to open pores for acne management - Next appointment scheduled for June 15 at 8 AM (4 weeks) - Continue vitamins - Patient to follow up with [facility] per their scheduling list
== END 2025-05-25 12:00 | disposition home or self-care (01) ==
LOC: HODSOBC 11:40
PROVIDERS: PCP Nurse Practitioner Family; Referring Provider Nurse Practitioner Family; Supervising Provider Obstetrics & Gynecology; Visit Provider Obstetrics & Gynecology
DX: O09.892 Supervision of other high risk pregnancies, second trimester (principal); O21.0 Mild hyperemesis gravidarum; O99.712 Diseases of the skin and subcutaneous tissue complicating pregnancy, second trimester; L70.0 Acne vulgaris; Z3A.16 16 weeks gestation of pregnancy; Z88.0 Allergy status to penicillin; Z91.018 Allergy to other foods
CPT/HCPCS: 99214; G0463

== ENCOUNTER 2025-06-20 11:14 | Outpatient (AMB) | payer MEDICAID, SELFPAY ==
[2025-06-20 11:24] VITALS: BP 115/81; PULSE 80; RESP 16; TEMP 36.7; O2SAT 98; BMI 39.3
--- NOTE | 2025-06-20 11:24 | OBCLNT_ITS ---
Vital Signs 06/20/25 11:24 Height 1.63 m Height Method Stated Weight 104.553 kg Weight Measurement Method Standing Scale BMI 39.3 BP 115/81 Blood Pressure Source Automatic Cuff Blood Pressure Location Left Upper Arm Position Sitting Respiration 16 Pulse 80 Pulse Source Monitor Temp 98.1 F Temp Source Oral Pulse Oximetry (%) 98 Oxygen Delivery Method Room Air Allergies/Home Meds Allergies & Medications Allergies almond Allergy (Severe, Verified 06/20/25 11:25) Swelling of Lip/Tongue/Throat penicillin G Allergy (Severe, Verified 06/20/25 11:25) Vomiting Medication Reconciliation vits no.126-ferrous fum 28 mg iron-folic acid 800 mcg tablet (Classic ) 1 tab PO QDAY 90 days #90 tabs 03/03/25 [Rx Confirmed 06/20/25] Immunizations Immunizations Flu Vaccine in the Last 12 Months: Yes Flu Vaccine Exclusion Criteria: Already Received Care OB Visit Log OB Flowsheet Initial Weight: Not Recorded Date -?-?-?-?-?-?-?-?-?-?-?-?- EGA Weight BP Alb Glu CTX Pres Fundal ht FHR Mov Dilation Station Effacement Hx Notes Visit Note 05/25/25 -?-?-?-?-?-?-?-?-?-?-?-?- 16w 6d 104.95 kg 118/80 absent 158 - She reports no current bleeding episodes. - Had a previous bleeding episode that occurred spontaneously while at home after work, but denies any recent bleeding. - Patient reports skin concerns with acn e that has been bothersome. - States that a previously recommended treatment is very painful and describes it as more like skin oil. - Notes presence of comedones. - She denies current nausea symptoms. - Patient is taking vitamins as prescribed. - She denies any recent hospitalizations or emergency department vi sits. - AFP t est to be performed (patient elected to proceed) - Clindamycin topical prescribed for acn e treatment - Steam face treatments recommended to brandon ellis for acne management - Next appointment scheduled June 15 at 8 AM (4 weeks) - Continue vitamins - Patient to follow up with Gen[facility] smith their scheduling list 06/20/25 -?-?-?-?-?-?-?-?-?-?-?-?- 20w 4d 104.553 kg 115/81 absent cephalic 21 14 5 - She reports experiencing heartburn, which she attributes to eating hot Cheetos. - Patient denies any other significant s ymptoms or concerns at this visit. - She appears to be tolerating the pregn татьяна well overall. - No mention of nausea, vomiting, bleedi ng, contractions, or other - related complaints. - Glucose sc reening due at 24 weeks - Next appointment in 4 weeks - Continue vitamins - Follow-up at with Dr Little on the 9t h (up to 24 weeks is acceptable) HAO Calculator Estimated Delivery Date Method Current WG Current Estimate 11/03/25 Ultrasound #1 20w 5d Other Estimates 10/04/25 LMP (Certain) 25w 0d Notes Visit Date: 05/25/25 Last Updated by: Domenico Allen MD Laboratory, Imaging, and Diagnostic Test Results - Date: 05/09/2025 - NIPT (Non-invasive Testing): Negative, gender consistent with female - SMA (Spinal Muscular Atrophy) testing: Negative - Cystic fibrosis testing: Negative - Obstetric ultrasound: Gestational age 16 weeks 6 days, heart rate 158 bpm, female fetus visualized with face and hands identified, placenta visualized Office Procedures [facility] LOC & Office Proc's Nursing/Assessment Patient Status: Established Patient OB Clinic Nursing Assessment: Medication Reconciliation, Update PMH in EMR and Vital Signs OB Clinic Coordination of Care: Complex Care and Chronic Disease 1-5, Consent,records obtained, informed consent, Education Simp Pt/Fam, 1 Ins Authorization, Lab and Imaging orders, Results/Orders obtained and Staff clarify orders Special Needs: Heart tones Established Patient Charge Established Patient Point Assignment: 150 Established Patient Point Charge: EP Level 4 (120-155) Assessment & Plan Diagnosis / Problem List (1) Supervision of high risk , unspecified, second trimester: Status: Acute Plan Problem List - at 20 weeks and 4 days gestation - Heartburn Plan - Glucose screening due at 24 weeks - Next appointment in 4 weeks - Continue vitamins - Follow-up at with Dr Little on the (up to 24 weeks is acceptable) 1. Progress Reviewed gestational age, growth, and heart rate. Planned frequent visits (every 2 weeks until 36 weeks, then weekly). 2. Instructed patient to monitor movements and report decreases immediately. 3. Testing Counseled on routine third-trimester labs per guidelines. Discussed potential need for ultrasound or monitoring based on risk factors. 4. Preeclampsia Precaution Educated on preeclampsia signs: severe headache, vision changes, right upper quadrant pain, sudden swelling. Advised urgent reporting of symptoms and discussed blood pressure monitoring if high risk. 5. Labor Precautions Reviewed labor signs: regular contractions, pelvic pressure, back pain, bleeding, or fluid leakage. Instructed to seek immediate care for these symptoms. 6. Lifestyle and Delivery Preparation Reinforced vitamins, nutrition, and safe activity. Discussed plan, pain management, and . Advised on labor preparation (e.g., hospital bag) and expectations. 7. Psychosocial Support Assessed emotional well-being and offered resources for mental health or parenting support.
== END 2025-06-20 13:40 | disposition home or self-care (01) ==
LOC: HODSOBC 11:14
PROVIDERS: Supervising Provider Obstetrics & Gynecology; Visit Provider Obstetrics & Gynecology
DX: O09.892 Supervision of other high risk pregnancies, second trimester (principal); O99.891 Other specified diseases and conditions complicating pregnancy; R12 Heartburn; Z3A.20 20 weeks gestation of pregnancy; Z88.0 Allergy status to penicillin; Z91.018 Allergy to other foods
CPT/HCPCS: 99214; G0463